=== PATIENT | male | born 1950 | race African-American/Black ===

== ENCOUNTER 2025-07-05 06:34 | Outpatient (REF) | payer MEDICARE, SELFPAY ==
[2025-07-05 06:01] LABS: MANUAL DIFF FLAG NO
--- OUTSIDE RECORDS SUMMARY | 2025-07-05 06:49 | XMS_ITS | Encounter Summary ---
Author Organization [facility] [place], Address [address] [place] [address] Phone Care Team Providers Care Nurse Orthopaedic Name Role Phone Juan Acosta MD Primary Care Provider [phone] Encounter Details Date Type Department Care Team (Late st Contact Info) Description 11/18/2023 Documentation Only [facility] [address] [place] [phone] [place] [address] [place] [phone] Social History Tobacco Use Types Packs/Day Years Used Date Smoking Tobacco: Former Cigarettes 0 Q uit: 08/11/1999 Smokeless Tobacco: Former Quit: 08/12/1998 Alcohol Use Standard Drinks/Week Comments Yes 0 (1 standard drink = 0.6 oz pure alcohol) Alcoholic Drinks/day: Occasional social drink Sex and Gender Information Value Date Recorded Sex Assigned at Not on file Legal Sex Male 4:37 PM EST Gender Identity Not on file Sexual Orientation Not on file documented as of this encounter Plan of Treatment Upcoming Encounters Date Type Department Care Team (Late st Contact Info) Description 08/25/2025 1:30 PM EST Office Visit [facility] [address] [place] [address] documented as of this encounter Visit Diagnoses Not on filedocumented in this encounter Care Teams Nurse Orthopaedic Relationship Specialty Start Date End Date Juan Acosta MD [address] [place] [address] [place] [address] PCP - General Internal Medicine 05/19/20 documented as of this encounter
--- OUTSIDE RECORDS SUMMARY | 2025-07-05 06:49 | XMS_ITS | Encounter Summary ---
Author Organization [facility] [place], Address [address] [place] [address] Phone Care Team Providers Care Bread Dough Mixer Name Role Phone Juan Acosta MD Primary Care Provider [phone] Encounter Details Date Type Department Care Team (Late st Contact Info) Description 06/11/2025 Orders Only [facility] [address] [place] [phone] Daisy Kaba [address] [place] [phone] Chronic kidney disease, Stage V (HCC) Social History Tobacco Use Types Packs/Day Years Used Date Smoking Tobacco: Former Cigarettes 0 Q uit: 08/11/1999 Smokeless Tobacco: Never Alcohol Use Standard Drinks/Week Comments Yes 0 [...] Visit [facility] [address] [place] [address] documented as of this encounter Visit Diagnoses Diagnosis Chronic kidney disease, Stage V (HCC) Chronic kidney disease, Stage V documented in this encounter Care Teams Bread Dough Mixer Relationship Specialty Start Date End Date Juan Acosta MD [address] [place] [address] PCP - General Internal Medicine 05/19/20 documented as of this encounter
--- OUTSIDE RECORDS SUMMARY | 2025-07-05 06:49 | XMS_ITS | Encounter Summary ---
Author Organization [facility] [place], Address [address] [place] [address] Phone Care Team Providers Care Continuity Coordinator Name Role Phone Juan Acosta MD Primary Care Provider [phone] Encounter Details Date Type Department Care Team (Late st Contact Info) Description 12/23/2024 Documentation Only [facility] [address] [place] [phone] Summer Perez [address] [place] [phone] Social History Tobacco Use Types Packs/Day Years [...] Visit [facility] [address] [place] [address] documented as of this encounter Visit Diagnoses Not on filedocumented in this encounter Care Teams Continuity Coordinator Relationship Specialty Start Date End Date Juan Acosta MD [address] [place] [address] [place] [address] PCP - General Internal Medicine 05/19/20 documented as of this encounter
--- OUTSIDE RECORDS SUMMARY | 2025-07-05 06:49 | XMS_ITS | Encounter Summary ---
Author Organization [facility] [place], Address [address] [place] [address] Phone Care Team Providers Care Engineer Geophysical Laboratory Name Role Phone Juan Acosta MD Primary Care Provider [phone] Encounter Details Date Type Department Care Team (Late st Contact Info) Description 01/01/2025 Documentation Only [facility] [address] [place] [phone] [place] [address] [place] [phone] Social History Tobacco Use Types Packs/Day Years [...] Visit [facility] [address] [place] [address] documented as of this encounter Visit Diagnoses Not on filedocumented in this encounter Care Teams Engineer Geophysical Laboratory Relationship Specialty Start Date End Date Juan Acosta MD [address] [place] [address] [place] [phone] PCP - General Internal Medicine 05/19/20 documented as of this encounter
--- OUTSIDE RECORDS SUMMARY | 2025-07-05 06:49 | XMS_ITS | Encounter Summary ---
Author Organization [facility] [place], Address [address] [place] [address] Phone Care Team Providers Care Rim Buster Name Role Phone Juan Acosta MD Primary Care Provider [phone] Encounter Details Date Type Department Care Team (Late st Contact Info) Description 02/10/2020 Orders Only [facility] [place] [address] [place] [phone] Lan Gamboa MD [address] [place] [address] [place] [phone] Chronic kidney disease stage 3 (HCC) Social History Tobacco Use Types Packs/Day Years Used Date Smoking Tobacco: Former Cigarettes 0 Q uit: 08/11/1999 Alcohol Use Standard Drinks/Week Comments Yes 0 [...] Visit [facility] [place] [address] [place] [address] [place] [phone] documented as of this encounter Visit Diagnoses Diagnosis Chronic kidney disease stage 3 (HCC) documented in this encounter Care Teams Rim Buster Relationship Specialty Start Date End Date Juan Acosta MD [address] [place] [phone] PCP - General Internal Medicine 05/19/20 documented as of this encounter
--- OUTSIDE RECORDS SUMMARY | 2025-07-05 06:49 | XMS_ITS | Encounter Summary ---
Author Organization [facility] [place], Address [address] [place] [address] Phone Care Team Providers Care Operations Scheduler Name Role Phone Juan Acosta MD Primary Care Provider [phone] Encounter Details Date Type Department Care Team (Late st Contact Info) Description 12/30/2024 Documentation Only [facility] [address] [place] [phone] Summer Perez [address] [place] [phone] Social History Tobacco Use Types Packs/Day Years [...] Visit [facility] [address] [place] [address] documented as of this encounter Visit Diagnoses Not on filedocumented in this encounter Care Teams Operations Scheduler Relationship Specialty Start Date End Date Juan Acosta MD [address] [place] [address] [place] [phone] PCP - General Internal Medicine 05/19/20 documented as of this encounter
--- OUTSIDE RECORDS SUMMARY | 2025-07-05 06:49 | XMS_ITS | Encounter Summary ---
Author Organization [facility] [place], Address [address] [place] [address] Phone Care Team Providers Care Airframe Technical Officer Name Role Phone Juan Acosta MD Primary Care Provider [phone] Encounter Details Date Type Department Care Team (Late st Contact Info) Description 06/29/2025 Treatment [facility], [address] [place] [phone] Angi Gudino MD [address] [place] [address] End stage renal disease; Dependence on renal dialysis; Type 2 diabetes mellitus with diabetic nephropathy Social History Tobacco Use Types Packs/Day Years [...] on file documented as of this encounter Miscellaneous Notes * Dialysis Note - Angi Gudino MD - 06/29/2025 12:00 AM EST BASIC NOTE Patient: Daniel Cardenas : 1950 Note Author: ANGI GUDINO MD Service Date: 06/29/2025 This patient was personally seen [id number] for a basic visit as part of routine monthly dialysis care for end stage renal disease. Primary cause of renal failure: E11.21 - Type 2 diabetes mellitus with diabetic nephropathy Attending Employment Security Officer: ANGI GUDINO MD Dialysis Location: [facility] Schedule: Shift: 2 OVERVIEW Patient is stable. 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 2.Access: Dialysis access function is acceptable. 3.Hypertension: Blood pressure control and volume status are at goal. 4.Anemia: Labs reviewed and adjustments to regimen made according to anemia management protocol. 5.Mineral Bone Disease: Labs reviewed. Diet and medication adjustment as per protocol. 6.Nutrition: Labs reviewed. Dietary adjustments made in conjunction with aromatherapist. 7.Transplant: The patient is being evaluated for a kidney transplant was turned down due to fraily. 05/18/25 Patient is stable Medications reviewed Physical Exam Vital signs: reviewed Edema: none Impression 1.Adequacy: KT/V was assessed and the dialysis prescription was adjusted as needed. 2.Access: Dialysis access function is acceptable. 3.Hypertension: Blood pressure control and volume status are at goal. 4.Anemia: Labs reviewed and adjustments to regimen made according to anemia management protocol. 5.Mineral Bone Disease: Labs reviewed. Diet and medication adjustment as per protocol. 6.Nutrition: Labs reviewed. Dietary adjustments made in conjunction with aromatherapist. 7.Transplant: The patient is being evaluated for a kidney transplant. 04/20/25 Patient is stable Medications reviewed Physical Exam Vital signs: reviewed Edema: none Impression 1.Adequacy: KT/V was assessed and the dialysis prescription was adjusted as needed. 2.Access: Dialysis access function is acceptable. 3.Hypertension: Blood pressure control and volume status are at goal. 4.Anemia: Labs reviewed and adjustments to regimen made according to anemia management protocol. 5.Mineral Bone Disease: Labs reviewed. Diet and medication adjustment as per protocol. 6.Nutrition: Labs reviewed. Dietary adjustments made in conjunction with aromatherapist. 7.Transplant: The patient is being evaluated for a kidney transplant. 03/30/25 Patient is stable Medications reviewed Physical Exam Vital signs: reviewed Edema: none Impression 1.Adequacy: KT/V was assessed and the dialysis prescription was adjusted as needed. 2.Access: Dialysis access function is acceptable. 3.Hypertension: Blood pressure control and volume status are at goal. 4.Anemia: Labs reviewed and adjustments to regimen made according to anemia management protocol. 5.Mineral Bone Disease: Labs reviewed. Diet and medication adjustment as per protocol. 6.Nutrition: Labs reviewed. Dietary adjustments made in conjunction with aromatherapist. 7.Transplant: referral sent 02/18/25 Patient is stable Medications reviewed Physical Exam Vital signs: reviewed Edema: none Impression 1.Adequacy: KT/V was assessed and the dialysis prescription was adjusted as needed. 2.Access: Dialysis access function is acceptable. 3.Hypertension: Blood pressure control and volume status are at goal. 4.Anemia: Labs reviewed and adjustments to regimen made according to anemia management protocol. 5.Mineral Bone Disease: Labs reviewed. Diet and medication adjustment as per protocol. 6.Nutrition: Labs reviewed. Dietary adjustments made in conjunction with aromatherapist. 7.Transplant: referral sent 01/12/25 Patient is stable MAT no signs of renal recovery 1 month on IHD, patient reports no UOP. Currently at rehab [facility] post sepsis ATN. Medications reviewed Physical Exam Vital signs: reviewed Edema: none Impression 1.Adequacy: KT/V was assessed and the dialysis prescription was adjusted as needed. 2.Access: Dialysis access function is acceptable. 3.Hypertension: Blood pressure control and volume status are at goal. 4.Anemia: Labs reviewed and adjustments to regimen made according to anemia management protocol. 5.Mineral Bone Disease: Labs reviewed. Diet and medication adjustment as per protocol. 6.Nutrition: Labs reviewed. Dietary adjustments made in conjunction with aromatherapist. 7.Transplant: The patient is being evaluated for a kidney transplant. Signed by: ANGI GUDINO MD on 06/30/2025 at 12:58:06 PM Transcribed by: ANGI GUDINO MD on 06/30/2025 at 12:58:06 PM documented in this encounter Plan of Treatment Upcoming Encounters Date Type Department Care Team (Late st Contact Info) Description 08/25/2025 1:30 PM EST Office Visit [facility] [place] [address] [place] [address] documented as of this encounter Visit Diagnoses Diagnosis End stage renal disease Dependence on renal dialysis Type 2 diabetes mellitus with diabetic nephropathy documented in this encounter Care Teams Airframe Technical Officer Relationship Specialty Start Date End Date Juan Acosta MD [address] [place] [phone] PCP - General Internal Medicine 05/19/20 documented as of this encounter
--- OUTSIDE RECORDS SUMMARY | 2025-07-05 06:49 | XMS_ITS | Encounter Summary ---
Author Organization [facility] Address [address] [place] [address] Phone Care Team Providers Care Adjutant General Name Role Phone Juan Acosta MD Primary Care Provider Encounter Details Date Type Department Care Team (Late st Contact Info) Description 11/21/2023 Documentation Only [facility] [address] [place] [phone] Mckenzie Morley Social History Tobacco Use Types Packs/Day Years [...] Visit [facility] [address] [place] [phone] documented as of this encounter Visit Diagnoses Not on filedocumented in this encounter Care Teams Adjutant General Relationship Specialty Start Date End Date Juan Acosta MD [address] [place] [address] PCP - General Internal Medicine 05/19/20 documented as of this encounter
--- OUTSIDE RECORDS SUMMARY | 2025-07-05 06:49 | XMS_ITS | Encounter Summary ---
Author Organization [facility] [place], Address [address] [place] [address] Phone Care Team Providers Care Senior Fire Protection Engineer Name Role Phone Juan Acosta MD Primary Care Provider [phone] Encounter Details Date Type Department Care Team (Late st Contact Info) Description 03/19/2025 Orders Only [facility] [address] [place] [phone] Daisy Kaba [address] [place] [phone] Chronic kidney disease, Stage V (HCC) Social [...] Visit [facility] [place] [address] [place] [address] documented as of this encounter Visit Diagnoses Diagnosis Chronic kidney disease, Stage V (HCC) Chronic kidney disease, Stage V documented in this encounter Care Teams Senior Fire Protection Engineer Relationship Specialty Start Date End Date Juan Acosta MD [address] [place] [phone] PCP - General Internal Medicine 05/19/20 documented as of this encounter
--- OUTSIDE RECORDS SUMMARY | 2025-07-05 06:49 | XMS_ITS | Encounter Summary ---
Author Organization [facility] [place], Address [address] [place] [address] Phone Care Team Providers Care Bellman Captain Name Role Phone Juan Acosta MD Primary Care Provider [phone] Encounter Details Date Type Department Care Team (Late st Contact Info) Description 12/23/2024 Documentation Only [facility] [address] [place] [phone] [place] [address] [place] [phone] Social History Tobacco Use Types Packs/Day Years [...] Visit [facility] [address] [place] [address] documented as of this encounter Visit Diagnoses Not on filedocumented in this encounter Care Teams Bellman Captain Relationship Specialty Start Date End Date Juan Acosta MD [address] [place] [address] [place] [address] PCP - General Internal Medicine 05/19/20 documented as of this encounter
--- OUTSIDE RECORDS SUMMARY | 2025-07-05 06:49 | XMS_ITS | Encounter Summary ---
Author Organization [facility] Address [address] [place] [address] Phone Care Team Providers Care Manager Mac Name Role Phone Juan Acosta MD Primary Care Provider [phone] Encounter Details Date Type Department Care Team (Late st Contact Info) Description 12/21/2024 Documentation Only [facility] [address] [place] [phone] [place] [address] [place] [phone] Social History Tobacco Use Types Packs/Day Years [...] Visit [facility] [address] [place] [address] documented as of this encounter Visit Diagnoses Not on filedocumented in this encounter Care Teams Manager Mac Relationship Specialty Start Date End Date Juan Acosta MD [address] [place] [phone] PCP - General Internal Medicine 05/19/20 documented as of this encounter
--- OUTSIDE RECORDS SUMMARY | 2025-07-05 06:50 | XMS_ITS | Encounter Summary ---
Author Organization [facility] Address [address] [place] [address] Care Team Providers Care Cmo Name Role Phone Juan Acosta MD Primary Care Provider [phone] Encounter Details Date Type Department Care Team (Late st Contact Info) Description 12/21/2024 Lab Requisition [facility] - Main Lab [address] [place] [phone] Jamel Ulloa MD [address] [place] [id number] Encounter for other general examination Social History Tobacco Use Types Packs/Day Years Used Date Smoking Tobacco: Former Cigarettes 0.5 31 0 08/12/1968 - 08/11/1999 Smokeless Tobacco: Never Alcohol Use Standard Drinks/Week Comments Yes 0 (1 standard drink = 0.6 oz pur e alcohol) Housing Instability Answer Date Recorde d Are you worried that in the next 2 months you may not have stable housing? No 07/30/2024 Food Access & Nutrition Answer Date Rec orded Do you have access to a vari ety of food including fruits and vegetables? No 07/30/2024 Access to Healthcare Answer Date Record ed Within the last 3 months, micah garzon many times did you visit the emergency department for your medical care? 0 07/30/2024 Health Literacy Answer Date Recorded How often do you need to hav e someone help you when you read instructions, pamphlets, or other written material from your doctor or pharmacy? Never 07/30/2024 Caregiver: How often do you need to have someone help you when you read instructions, pamphlets, or other written material from your doctor or pharmacy? Not on file 07/30/2024 Financial Risk Answer Date Recorded How hard is it for you to pa y for the very basics like food, housing, medical care, and air conditioning / heating? Very hard 07/30/2024 Transportation Answer Date Recorded Has the lack of transportati on kept you from meetings, work, or from getting things needed for daily living? Yes Has the lack of transportati on kept you from medical appointments or from getting medications? Yes 07/30/2024 Social Isolation Answer Date Recorded How often do you feel lonely or isolated from those around you? Sometimes 07/30/2024 Food Risk Answer Date Recorded Within the past 12 months we worried whether our food would run out before we got money to buy more. Never true 12/07/2024 Within the past 12 months th e food we bought just didn't last and we didn't have money to get more. Never true 12/07/2024 Dependent Care Answer Date Recorded Do you need help finding or paying for care for your loved ones. For example, child care team lead or elderly care for an older adult? Yes 07/30/2024 Education Answer Date Recorded Do you think completing more education or training, like finishing a GED, going to college, or learning a trade, would be helpful for you? No 07/30/2024 Employment and Income Answer Date Recor ded During the last four weeks, have you been actively looking for work? No 07/30/2024 Living Situation Answer Date Recorded What is your living situation? Unrecognized valu e 07/30/2024 Interpersonal Safety Answer Date Record ed Physical Abuse Unrecognized value 12/16/2024 Verbal Abuse Unrecognized value 12/16/2024 Sex and Gender Information Value Date Recorded Sex Assigned at Male 11/30/2024 10:37 AM EDT Legal Sex Male 6:36 PM EST Gender Identity Male 11/30/2024 10:37 AM EDT Sexual Orientation Not on file documented as of this encounter Plan of Treatment Upcoming Encounters Date Type Department Care Team (Late st Contact Info) Description 07/19/2025 11:00 AM EST Office Visit Adult [address] [phone] Juan Acosta MD [address] [place] [address] 08/02/2025 9:10 AM EST Office Visit [facility] [address] [facility] [address] [place] [phone] Katiana Keen NP [address] [place] [address] [place] [address] 12/06/2025 11:00 AM EDT Office Visit [address] [phone] Juan Acosta MD [address] [place] [address] documented as of this encounter Procedures Procedure Name Priority Date/Time Associated Diagnosis Comments CBC WITH AUTO DIFFERENTIAL Routine 12/21/2024 5:08 AM EDT Encounter for other general examination CBC AND DIFFERENTIAL Routine 12/21/2024 5:08 AM EDT Encounter for other general examination PHOSPHORUS Routine 12/21/2024 5:08 AM EDT Encounter for other general examination HEMOGLOBIN A1C Routine 12/21/2024 5:08 AM EDT Encounter for other general examination BASIC METABOLIC PANEL Routine 12/21/2024 5:08 AM EDT Encounter for other general examination documented in this encounter Results * (ABNORMAL) CBC auto differential (12/21/2024 5:08 AM EDT) [facility] WBC 5.2 4.8 - 10.8 K/mcL LAB HEMETOLOGY METHOD 12/21/2024 12:51 PM [facility] RBC 2.50(L) 4.50 - 5.50 M/mcL LAB HEMETOLOGY METHOD 12/21/2024 12:51 PM [facility] Hemoglobin 7.6(L) 13.5 - 17.5 g/dL LAB HEMETOLOGY METHOD 12/21/2024 12:51 PM [facility] Hematocrit 25.0(L) 42.0 - 54.0 % LAB HEMETOLOGY METHOD 12/21/2024 12:51 PM [facility] MCV 102.0(H) 79.0 - 98.0 FL LAB HEMETOLOGY METHOD 12/21/2024 12:51 PM [facility] MCH 31.0 27.0 - 32.0 pcg LAB HEMETOLOGY METHOD 12/21/2024 12:51 PM [facility] MCHC 30.4(L) 32.0 - 37.0 g/dL LAB HEMETOLOGY METHOD 12/21/2024 12:51 PM [facility] RDW 14.4 11.0 - 15.0 % LAB HEMETOLOGY METHOD 12/21/2024 12:51 PM [facility] Platelets 247 130 - 400 K/mcL LAB HEMETOLOGY METHOD 12/21/2024 12:51 PM [facility] MPV 10.7 7.0 - 11.0 FL LAB HEMETOLOGY METHOD 12/21/2024 12:51 PM [facility] NRBC 0.0 <1.0 % LAB HEMETOLOGY METHOD 12/21/2024 12:51 PM [facility] NRBC Absolute 0.00 <0.10 K/mcL LAB HEMETOLOGY METHOD 12/21/2024 12:51 PM [facility] Neutrophils Relative 49.2 % LAB HEMETOLOGY METHOD 12/21/2024 12:51 PM [facility] Lymphocytes Relative 30.3 % LAB HEMETOLOGY METHOD 12/21/2024 12:51 PM [facility] Monocytes Relative 14.5 % LAB HEMETOLOGY METHOD 12/21/2024 12:51 PM [facility] Eosinophils Relative 4.2 % LAB HEMETOLOGY METHOD 12/21/2024 12:51 PM [facility] Basophils Relative 1.2 % LAB HEMETOLOGY METHOD 12/21/2024 12:51 PM [facility] Immature Granulocytes Relative 0.6 % LAB HEMETOLOGY METHOD 12/21/2024 12:51 PM [facility] Neutrophils Absolute 2.55 1.50 - 7.00 K/mcL LAB HEMETOLOGY METHOD 12/21/2024 12:51 PM [facility] Lymphocytes Absolute 1.57 1.00 - 5.00 K/mcL LAB HEMETOLOGY METHOD 12/21/2024 12:51 PM [facility] Monocytes Absolute 0.75 0.20 - 1.00 K/mcL LAB HEMETOLOGY METHOD 12/21/2024 12:51 PM [facility] Eosinophils Absolute 0.22 0.00 - 0.50 K/mcL LAB HEMETOLOGY METHOD 12/21/2024 12:51 PM [facility] Basophils Absolute 0.06 0.00 - 0.20 K/mcL LAB HEMETOLOGY METHOD 12/21/2024 12:51 PM [facility] Immature Granulocytes Absolute 0.03 0.00 - 0.03 K/mcL LAB HEMETOLOGY METHOD 12/21/2024 12:51 PM [facility] Blood Venous blood specimen / Unknown Venipuncture / Unknown 12/21/2024 5:08 AM EDT 12/21/2024 10:32 AM EDT us Jamel Ulloa MD LAB BLOOD ORDERABLES Final Resu lt Performing Organization Address City/[facility]/ZIP Co de Phone Number [facility] [address] [place] [address], [place] [phone] * Phosphorus (12/21/2024 5:08 AM EDT) Phosphorus 3.2 2.5 - 4.5 mg/dL LAB CHEMISTRY METHOD 12/21/2024 1:32 PM EDT [facility] Blood Venous blood specimen / Unknown Venipuncture / Unknown 12/21/2024 5:08 AM EDT 12/21/2024 10:32 AM EDT us Jamel Ulloa MD LAB BLOOD ORDERABLES Final Resu lt Performing Organization Address [facility]/ZIP Co de Phone Number [facility] [address] [place] [address], [place] [phone] * Hemoglobin A1c (12/21/2024 5:08 AM EDT) Hemoglobin A1C 5.9 <6.5 % LAB CHEMISTRY METHOD 12/21/2024 10:14 PM EDT [facility] Mean Bld Glu Estim. 123 mg/dL LAB CHEMISTRY METHOD 12/21/2024 10:14 PM EDT [facility] Blood Venous blood specimen / Unknown Venipuncture / Unknown 12/21/2024 5:08 AM EDT 12/21/2024 10:32 AM EDT us Jamel Ulloa MD LAB BLOOD ORDERABLES Final Resu lt Performing Organization Address City/[facility]/ZIP Co de Phone Number [facility] [address] [place] [address], [place] [phone] * (ABNORMAL) Basic metabolic panel (12/21/2024 5:08 AM EDT) Sodium 130(L) 133 - 145 mmol/L LAB CHEMISTRY METHOD 12/21/2024 1:52 PM [facility] Potassium 5.3 3.5 - 5.5 mmol/L LAB CHEMISTRY METHOD 12/21/2024 1:52 PM [facility] Chloride 92(L) 96 - 110 mmol/L LAB CHEMISTRY METHOD 12/21/2024 1:52 PM [facility] CO2 27 21 - 32 mmol/L LAB CHEMISTRY METHOD 12/21/2024 1:52 PM [facility] Anion Gap 11 3 - 11 LAB CHEMISTRY METHOD 12/21/2024 1:52 PM [facility] Glucose 64(L) 70 - 100 mg/dL LAB CHEMISTRY METHOD 12/21/2024 1:52 PM [facility] BUN 57(H) 5 - 25 mg/dL LAB CHEMISTRY METHOD 12/21/2024 1:52 PM [facility] Creatinine 5.50(H) 0.70 - 1.30 mg/dL LAB CHEMISTRY METHOD 12/21/2024 1:52 PM [facility] eGFR 10(L) >=60 mL/min/1. 73m2 LAB CHEMISTRY METHOD 12/21/2024 1:52 PM [facility] Comment:Calculation based on the Chronic Kidney Disease Epidemiology Collaboration (CKD-EPI) equation refit without adjustment for race. BUN/Creatinine Ratio 10.4 LAB CHEMISTRY METHOD 12/21/2024 1:52 PM [facility] Calcium 8.8 8.5 - 10.5 mg/dL LAB CHEMISTRY METHOD 12/21/2024 1:52 PM [facility] Blood Venous blood specimen / Unknown Venipuncture / Unknown 12/21/2024 5:08 AM EDT 12/21/2024 10:32 AM EDT us Jamel Ulloa MD LAB BLOOD ORDERABLES Final Resu lt [facility] [address] [place] [address], documented in this encounter Visit Diagnoses Diagnosis Encounter for other general examination documented in this encounter Additional Health Concerns Infection Onset Date Last Indicated Resolved Time COVID-19 11/30/2024 11/30/2024 12/30/2024 7:06 PM EDT Assessment Noted Time PHQ-9 Depression Total Score: 6 07/13/20 24 4:59 PM EST A fall risk assessment has been complete d for the patient 07/12/2024 10:54 AM EST documented as of this encounter Care Teams Cmo Relationship Specialty Start Date End Date Juan Acosta MD [address] [place] [phone] PCP - General Internal Medicine 03/25/20 documented as of this encounter
--- OUTSIDE RECORDS SUMMARY | 2025-07-05 06:50 | XMS_ITS | Clinical Summary ---
Author Organization [facility] Address [address] [place] [address] Care Team Providers Care Photogrammetry Airplane Pilot Name Role Phone Juan Acosta MD Primary Care Provider Allergies Active Allergy Reactions Criticality Noted Date Comments Egg Derived 01/14/2025 Egg Yolk Nausea And Vomiting 10/26/2014 Medications cetirizine (ZyrTEC) 10 mg tablet Take 10 mg by mouth daily. 014 Active docusate sodium (COLACE) 100 mg capsule Take 100 mg by mouth 2 times daily. Active MULTIVITAMIN ORAL daily Active calcium carbonate (CALCIUM 500 ORAL) daily Active medical supply, miscellaneous (MISCELLANEOUS MEDICAL SUPPLY MISC) HISTORICAL CPAP Inhale into the lungs. [employer]-pressure 10 Active allopurinoL (ZYLOPRIM) 100 mg tabletIndication s:Gout, unspecified,Hype rlipidemia, unspecified TAKE 1 TABLET BY MOUTH EVERY DAY 90 tablet 1 025 Active Nephro Vitamins 0.8 mg tablet TAKE 1 TABLET BY MOUTH EVERY DAY 90 tablet 1 025 Active senna 8.6 mg tablet TAKE 1 TABLET BY MOUTH TWICE A DAY 180 tablet 1 025 Active Eliquis 5 mg tablet TAKE 1 TABLET BY MOUTH TWICE A DAY 180 tablet 1 Active ammonium lactate (AMLACTIN) 12 % cream APPLY TO AFFECTED AREA TWICE A DAY 140 g 1 Active atorvastatin (LIPITOR) 20 mg tablet Take 1 tablet (20 mg total) by mouth 1 (one) time each day. 90 tablet 1 Active metoprolol tartrate (LOPRESSOR) 25 mg tablet Take 1 tablet (25 mg total) by mouth 2 (two) times a day. 025 2024 Active midodrine (PROAMATINE) 10 mg tablet Take 1 tablet (10 mg total) by mouth 3 (three) times a day if needed (systolic <100 or diastolic <40). 025 2024 Active clopidogreL (PLAVIX) 75 mg tablet Take 1 tablet (75 mg total) by mouth 1 (one) time each day. 2024 Active pantoprazole (PROTONIX) 40 mg EC tablet Take 1 tablet (40 mg total) by mouth 1 (one) time each day before breakfast. Do not crush, chew, or split. 2024 Discontinued melatonin 3 mg tablet Take 1 tablet (3 mg total) by mouth at bedtime as needed (Sleep). 2024 Discontinued FLUoxetine (PROzac) 20 mg capsule Take 1 capsule (20 mg total) by mouth 1 (one) time each day. 2024 Discontinued albuterol 2.5 mg /3 mL (0.083 %) nebulizer solutionIndicati ons:MSSA bacteremia Take 3 mL (2.5 mg total) by nebulization every 4 (four) hours if needed for wheezing. 2024 Discontinued metoprolol tartrate (LOPRESSOR) 25 mg tablet TAKE 1/2 TABLET BY MOUTH TWICE A DAY 90 tablet 1 025 2024 Discontinued(S top Taking at Discharge) midodrine (PROAMATINE) 5 mg tablet Take 1 tablet (5 mg total) by mouth 2 (two) times daily before breakfast and lunch. 180 tablet 1 2024 Discontinued(S top Taking at Discharge) atorvastatin (LIPITOR) 20 mg tablet TAKE 1 TABLET BY MOUTH EVERY DAY 90 tablet 1 025 2024 Discontinued(S top Taking at Discharge) diclofenac (VOLTAREN) 1 % topical gel Apply 4 g topically 2 (two) times a day. 60 g 1 025 2024 Discontinued(S top Taking at Discharge) acetaminophen (TYLENOL) 500 mg tablet Take 2 tablets (1,000 mg total) by mouth every 8 (eight) hours for 10 days. 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, bilateral ([facility] V2 4) 06/14/2025 Malnutrition of moderate degree ([facility] V24) Pneumonia 12/10/2024 MSSA bacteremia 12/10/2024 Acute kidney injury superimposed on CKD ([facility] V24) 12/10/2024 Volume overload 12/10/2024 Hiccups 12/10/2024 Acute hypoxemic respiratory failure ([facility] V24, [facility] V28) 11/30/2024 Hyperkalemia 11/30/2024 Type 2 diabetes mellitus wit h cataract ([facility] V24, [facility] V28) 05/12/2024 Type 2 diabetes mellitus, co ntrolled, with renal complications ([facility] V24, [facility] V28) 05/12/2024 Known medical problems 05/12/2024 Overview (05/12/2024): DM (diabetes mellitus) type II uncontrolled with eye manifestation Malnutrition compromising bodily function ([facility] V24) 05/12/2024 Overview (05/12/2024): Internal hemorrhoids with other complication Cervical myelopathy ([facility] V24, [facility] V28) 0 02/26/2024 Overview (05/12/2024): Last Assessment & Plan: Patient has h/o severe distal arm and hand numbness after a fall down steps on his porch 05/08/22. Right after he fell, he had numbness in his forearms then then started to spread to his hands. He had some improvement in the forearm numbness over time, but his fingers/ fingertips are still very numb and he has a hard time using his hands, gripping things, holding onto the walker. He has a hard time tying his shoes, writing, buttoning. He has senior services coming 2x/ week to do housekeeping. His grandaughter moved in to help him out, but he is able to dress himself. If he has to he could vacuum and fold laundry. He has had difficutly lifting his legs, his balance has been off and he needs a walker since the fall. He also has lumbar stenosis, multilevel lumbar degenerative findings, with chronic back pain x 20 yrs, worse recently. He has multiple medical issues, especially vascular disease, LE swelling and wounds that weep fluid, he goes to the wound clinic, has gauze bandages on the lower legs/ankles. He was referred by Dr. Paniagua, neurology. He says his diabetes is under good control, last A1C 5.5. No previous AR, cancer hx. His C/S MRI 11/09/23 [facility] shows severe C4-5 stenosis with cord compression and signal change in the spinal cord, including compression posteriorly with thickening of the ligament. His L/S MRI shows multilevel DDD, stenosis including L4-5 stenosis. I reviewed MRI with pt on the computer. Dr. Hoffman reviewed the C/S MRI while pt was in the office. Mr. Farmer has severe C4-5 stenosis, cord compression and cervical myelopathy since a fall almost [address] Hoffman offered pt C4-5 posterior decompression. We talked in detail about the surgery, recovery, risks and benefits, including but not limited to need for GETA, risk of AR or stroke, infection, hematoma, risk of damage to spinal cord or nerves, dural tear / CSF leak. I explained the goal of surgery would be to prevent him for getting worse over time, and if he might accidentally have another fall, sxs could get worse. He may not see improvement in his current sxs. Hibiclens body wash and instructions given to pt. All questions answered. He will need medical and vascular clearance (Dr. Bird). We will call for wound clinic notes. We can address his low back pain and lumbar stenosis once we are able to fix the cervical stenosis which is the priority, if medically cleared for surgery and able to come off his coumadin 5 days pre and postop. Assessment & Plan (06/19/2024 11:51 AM EST): Mr. Farmer describes significant improvement in his hands. He says he can finally feel his fingertips. He is very pleased with his postoperative results and I would agree with him. His wound is now well-healed and he is off of Keflex. No fevers. No night sweats. He will follow-up on an as-needed basis. Chronic diastolic congestive heart failure ([facility] V24, [facility] V28) 11/15/2021 Overview (05/12/2024): Last Assessment & Plan: The patient has ongoing mild lower extremity edema which is typically managed with compression stockings. He does however, report significant sodium load in his 24-hour dietary recall which is likely adding to his lower extremity edema. We then are adjusting his diuretic therapy around his sodium indiscretion and likely causing a degree of intravascular volume depletion which is leading him to be dizzy. Part of his dyspnea is also sounds to be potential vertigo/BPPV given the dizziness occurring with moving his head. If his dizziness does not improve with reduction of his Lasix as well as better salt intake, he has a visit planned with his PCP team and he can be evaluated for vertigo/BPPV at that time by his team. Continue otherwise for now his JOVANNY inhibitor, beta-hina, and MRA. He also takes nifedipine for blood pressure control which is integral in managing his HFpEF, but is likely adding in part to his lower extremity edema. The lower extremity edema that accompanies calcium channel hina use typically is refractory to diuretic adjustment which also may point to intravascular volume depletion as a source of at least part of his dizziness. The patient will send me a Aireumt message next week to let me know how he is doing. Ascending aorta dilatation ([facility] V24) 021 Abdominal aortic aneurysm (A AA) without rupture ([facility] V24) 07/19/2020 Iliac artery aneurysm, right ([facility] V24) 07/19 Primary central sleep apnea 09/14/2016 Obesity (BMI 30.0-34.9) 07/27/2014 Type 2 diabetes mellitus ([facility]24, [facility] V 28) 2014 DM (diabetes mellitus) with peripheral vascular complication ([facility] V24, [facility] V28) 12/25/2011 Overview (05/12/2024): ED. Assessment & Plan (08/06/2024 12:11 PM EST): Orders: Hemoglobin A1c; Future PVD (peripheral vascular disease) ([facility] V24) 12/25/2011 S/P colostomy ([facility] V24, [facility] V28) 012 Overview (05/12/2024): Placed 2003, Revision of- 2004. CKD (chronic kidney disease) stage 4, GFR 15-29 ml/min ([facility] V24, [facility] V28) 03/16/2011 NS (nuclear sclerosis) 02/02/2011 Spinal stenosis, lumbar anna on, without neurogenic claudication 04/03/2010 Degenerative arthritis of lumbar spine 0 Low back pain 02/16/2010 Radiculitis, lumbosacral 02/16/2010 Microalbuminuria 12/24/2008 Gout 11/03/2007 Obstructive sleep apnea 05/14/2006 Overview (05/12/2024): [facility] [place] [facility] [place]ysomnogram treatment study. Date 11/03/2017. SE 51 % SM 60 %; spent 0 % of the study in REM. At the optimal pressure of 18 CPAP; RDI 2.1 (AHI 0), Central apneas 0; Obstructive apneas 0; Mixed apneas 0; hypopneas 0; RERAs 2; and, average oxygen saturation was 97%. For the entire study, PLMs ~1. Atrial fibrillation ([facility] V24, [facility] V28) 0 09/25/2005 Overview (05/12/2024): Last Assessment & Plan: Patient's heart rate is well controlled on EKG in office today. He remains chronically anticoagulated Coumadin with rate control strategy with Coreg. Continue the same for now. Assessment & Plan (07/28/2024 11:31 AM EST): Orders: ECG 12 lead Transthoracic echocardiogram (TTE) complete with PRN contrast, bubble, strain, and 3D order panel; Future CHF (congestive heart failure) (CMS/HCC V24, CMS /HCC V28) 09/25/2005 Diverticulitis of colon 09/25/2005 Essential hypertension, benign 08/31/2005 Overview (05/12/2024): Last Assessment & Plan: Patient's blood pressure is reasonably controlled in office however, upon standing, his blood pressure dropped to 110. This likely explains at least part of his postural dizziness. We will decrease his Lasix to 40 mg daily, advising fluid and sodium restriction as the alternative component to increase diuretic in managing his HFpEF. This is discussed with patient. I gave him information on sodium reduction. Assessment & Plan (08/06/2024 12:11 PM EST): Orders: Basic metabolic panel; Future Hyperlipidemia 08/31/2005 Overview (05/12/2024): Last Assessment & Plan: Patient's LDL is well controlled given underlying diabetes. Continue statin at current dose. Assessment & Plan (08/06/2024 12:11 PM EST): Orders: Lipid panel with reflex to direct LDL; Future Encounters Date Type Department Care Team Description 06/14/2025 1:29 PM EST Anesthesia Event [facility] [place] [address] [place] [phone] Zeke Reddy MD Steele, Matthew G, CRNA 06/14/2025 1:10 PM EST - 06/14/2025 3:10 PM EST Surgery [facility] [place] [address] [place] [phone] Gerardo Bird MD LEFT POPLITEAL ARTERY ANEURYSM HYBRID REPAIR 06/14/2025 9:00 AM EST - 06/14/2025 11:00 AM EST Surgery [facility] [employer] Installation Engineer [address] [place] [phone] Gerardo Bird MD Angiography lower ext left 06/14/2025 1:52 AM EST - 06/21/2025 12:06 PM [facility] Hospital Encounter [facility] [address] [place] [phone] Ama Stephenson MD Sondhi, Vikram, MD Zipagan, James T, MD Kokosadze, Estate, MD Ascending aorta dilatation ([facility] V24) (Primary Dx); Atrial fibrillation ([facility] V24, CMS/HCC V28); Popliteal artery aneurysm, bilateral ([facility] V24); Peripheral arterial disease ([facility] V24); Infrarenal abdominal aortic aneurysm (AAA) without rupture ([facility] V24); Aneurysm artery, popliteal ([facility] V24); Ruptured aneurysm of popliteal artery ([facility] V24); Dissection of aorta ([facility] V24, [facility] V28) Discharge Disposition: Detention Facility 06/01/2025 Telephone Adult Medicine [address] [phone] Juan Acosta MD 05/31/2025 10:00 AM EDT Office Visit Adult [address] [phone] Juan Acosta MD Type 2 diabetes mellitus, controlled, with renal complications ([facility] V24, [facility] V28) (Primary Dx); Pure hypercholesterolemi a; Encounter for long-term (current) use of medications; Hand paresthesia; Bilateral carpal tunnel syndrome; Atrial fibrillation, unspecified type ([facility]/HCC V24, CMS/HCC V28); ESRD (end stage renal disease) on dialysis ([facility] V24, [facility] V28); Essential hypertension, benign 04/13/2025 Anticoagulation - Warfarin Visit [facility] [address] [phone] Norma Dietz LPN Atrial fibrillation, unspecified type ([facility] V24, [facility] V28) (Primary Dx) from Last 3 Months Immunizations Immunization Administration Dates Next Due H1N1 Inj Preservative Free 09/05/2009 Hepatitis B (Egncwxr-A-Gghmj , Recombivax HB-Adult) 19yo and older 03/20/2025,02/13/2025,01/16/2025 Influenza Quadravalent, MDCK , 0.5ml, preservative free (Flucelvax) 6mo and older 06/19/2018 Influenza Quadravalent, MDCK , 0.5ml, with preservative (Flucelvax) 6mo and older 06/06/2017 Influenza trivalent, 0.5mL ( Fluzone High-dose) 65yo and older 05/28/2022,06/22/2021,05/20/2020,07/01 Influenza trivalent, with pr eservative (Fluzone; Afluria) 6mo and older 05/04/2025,04/27/2016,06/03/2015,05/27,05/05/2013,05/02/2012,05/12/2011 ,05/26/2010,09/05/2009,05/11/2008 Influenza, Unspecified 07/01/2019 Moderna (age 6mo & older) Bi valent, COVID-19, 0.5 mL or 0.25 mL dosage 05/28/2022 Dr. Scribbles SARS-CoV-2 COVID-19, mRNA, LNP-S, preservative free 07/12/2021,11/29/2020,11/08/2020 Pneumococcal conjugate 13 va lent (Prevnar 13, PCV13) 2mo and older 06/06/2017 Pneumococcal conjugate 20 va lent (Prevnar 20, PCV 20) 2mo and older 01/14/2025 Pneumococcal polysaccharide 23 valent (Pneumovax 23) 2yo and older 09/09/2014,04/02/2007 RSV, bivalent, protein subun it RSVpreF, 0.5mL, Preservative Free (Arexvy) 50yo and older 05/24/2025 Td Tetanus diptheria (Tdvax) 7yo and older 04/09/2007 Tdap Tetanus diptheria acell ular pertussis (Boostrix; Adacel) 7yo and older 01/31/2017 Zoster Live 02/29/2012 Surgical History Surgery Date Site/Laterality Comments OTHER SURGICAL HISTORY 2003 PROCEDURE: SD COLOSTOMY/SKIN LEVEL CECOSTOMY; COMMENT: DR CLARK; with sigmoid resection for diverticulitis. OTHER SURGICAL HISTORY 2004 PROCEDURE: SD REVJ COLOSTOMY SMPL RLS SUPFC SCAR SPX KNEE ARTHROSCOPY W/ DEBRIDEMENT 2002 PROCEDURE: SD ARTHRS KNEE DEBRIDEMENT/SHAVING ARTCLR CRTLG; COMMENT: DR JUDGE, right KNEE SURGERY 2006 PROCEDURE: HISTORICAL KNEE SURGERY; COMMENT: left, arthroscopy, Dr. Kang CATARACT EXTRACTION Bilateral PROCEDURE: HISTORICAL CATARACT REMOVAL; COMMENT: intraocular lenses 2014 COLONOSCOPY 2005 PROCEDURE: HISTORICAL COLONOSCOPY; COMMENT: Anastomosis, no polyps. COLONOSCOPY 07/31/2016 PROCEDURE: HISTORICAL COLONOSCOPY; COMMENT: Muslu[facility]; no polyps. MULTIPLE TOOTH EXTRACTIONS 1981 PROCEDURE: HISTORICAL DENTAL EXTRACTION OTHER SURGICAL HISTORY 09/17/2023 PROCEDURE: SD SLCTV CATHJ 3RD+ ORD SLCTV ABDL PEL/LXTR BRNCH OTHER SURGICAL HISTORY 09/17/2023 PROCEDURE: SD SLCTV CATHJ EA 2ND+ ORD ABDL PEL/LXTR ART BRNCH OTHER SURGICAL HISTORY 09/17/2023 PROCEDURE: X-RAY EXAM OF ARM/LEG ARTERY OTHER SURGICAL HISTORY 09/17/2023 PROCEDURE: ULTRASOUND GUIDANCE FOR VASCULAR AC NECK SURGERY 05/12/2024 PROCEDURE: HISTORICAL NECK SURGERY; COMMENT: C4-5 posterior decompression, Dr. Hoffman. Medical History Medical History Date Comments Morbid obesity (CMS/HCC V24, CMS/HCC V28) 11/09/2005 DX:Morbid obesity (HCC) Diverticulosis of colon (wit hout mention of hemorrhage) 2003 DX:Diverticulosis of colon ( without mention of hemorrhage) Other and unspecified hyperlipidemia 08/31/2005 DX:Other and unspecified hyperlipidemia Atrial fibrillation (CMS/HCC V24, CMS/HCC V28) 09/25/2005 DX:Atrial fibrillation (HCC) Coronary atherosclerosis of unspecified type of vessel, kalispel or graft 09/25/2005 DX:Coronary atherosclerosis of unspecified type of vessel, kalispel or graft Diverticulitis of colon (wit hout mention of hemorrhage)(562.11) 09/25/2005 DX:Diverticulitis of co cheli (without mention of hemorrhage)(562.11) Internal hemorrhoids with ot her complication 11/09/2005 DX:Internal hemorrhoids with other complication Unspecified sleep apnea 05/14/2006 DX:Unspe cified sleep apnea Type II or unspecified type diabetes mellitus with other specified manifestations, not stated as uncontrolled 08/31/2005 DX:Type II or unspecified ty pe diabetes mellitus with other specified manifestations, not stated as uncontrolled Gout 11/03/2007 DX:Gout Type II or unspecified type diabetes mellitus without mention of complication, not stated as uncontrolled 08/31/2005 DX:Type II or unspecified ty pe diabetes mellitus without mention of complication, not stated as uncontrolled Essential hypertension, benign 08/31/2005 D X:Essential hypertension, benign Low back pain DX:Low back pain Difficulty balancing DX:Difficul ty balancing Loss of sensation DX:Loss of sen sation HTN (hypertension) DX:HTN (hyper tension) PVD (peripheral vascular dis ease) ([facility] V24) 12/25/2011 DX:PVD (peripheral vascular disease) ([facility]) Abdominal aortic aneurysm (A AA) without rupture ([facility] V24) 07/19/2020 DX:Abdominal aortic aneu rysm (AAA) without rupture (HCC) Chronic diastolic congestive heart failure ([facility] V24, [facility] V28) 11/15/2021 DX:Chronic diastoli c congestive heart failure (HCC) DM (diabetes mellitus) with peripheral vascular complication ([facility] V24, [facility] V28) 12/25/2011 DX:DM (diabetes mellitus) w ith peripheral vascular complication (HCC); COMMENT: ED. Iliac artery aneurysm, right ([facility] V24) 07/19/2020 DX:Iliac artery aneurysm, ri ght ([facility]) Family History Medical History Relation Name Comments No Known Problems Aunt No Known Problems Brother Aneurysm Father Arthritis Father Other: circulation problems Father hypertension No Known Problems Maternal Grandfather No Known Problems Maternal Grandmother Breast cancer Mother No Known Problems Other Arthritis Paternal Grandfather No Known Problems Paternal Grandmother No Known Problems Sister No Known Problems Uncle Blindness Neg Hx Cataracts Neg Hx Glaucoma Neg Hx Macular degeneration Neg Hx Strabismus Neg Hx Relation Name Status Comments Aunt Brother Father Maternal Grandfather Maternal Grandmother Mother Other Paternal Grandfather Paternal Grandmother Sister Uncle Social History Tobacco Use Types Packs/Day Years Used Date Smoking Tobacco: Former Cigarettes 0.5 31 0 08/12/1968 - 08/11/1999 Smokeless Tobacco: Never Alcohol Use Standard Drinks/Week Comments Yes 0 (1 standard drink = 0.6 oz pur e alcohol) occasional Housing Instability Answer Date Recorde d Are you worried that in the next 2 months you may not have stable housing? No 02/11/2025 Food Access & Nutrition Answer Date Rec orded Do you have access to a vari ety of food including fruits and vegetables? Yes 02/11/2025 Access to Healthcare Answer Date Record ed Within the last 3 months, ho w many times did you visit the emergency department for your medical care? 2 02/11/2025 Health Literacy Answer Date Recorded How often do you need to hav e someone help you when you read instructions, pamphlets, or other written material from your doctor or pharmacy? Never 02/11/2025 Caregiver: How often do you need to have someone help you when you read instructions, pamphlets, or other written material from your doctor or pharmacy? Not on file 02/11/2025 Financial Risk Answer Date Recorded How hard is it for you to pa y for the very basics like food, housing, medical care, and air conditioning / heating? Not very hard 02/11/2025 Transportation Answer Date Recorded Has the lack of transportati on kept you from meetings, work, or from getting things needed for daily living? No Has the lack of transportati on kept you from medical appointments or from getting medications? No 02/11/2025 Social Isolation Answer Date Recorded How often do you feel lonely or isolated from th ose around you? Never 02/11/2025 Food Risk Answer Date Recorded Within the past 12 months we worried whether our food would run out before we got money to buy more. Never true 02/11/2025 Within the past 12 months th e food we bought just didn't last and we didn't have money to get more. Never true 02/11/2025 Dependent Care Answer Date Recorded Do you need help finding or paying for care for your loved ones. For example, child nutrition director or elderly care for an older adult? No 02/11/2025 Education Answer Date Recorded Do you think completing more education or training, like finishing a GED, going to college, or learning a trade, would be helpful for you? N/A 02/11/2025 Employment and Income Answer Date Recor ded During the last four weeks, have you been actively looking for work? No 02/11/2025 Living Situation Answer Date Recorded What is your living situation? Unrecognized valu e 02/11/2025 Interpersonal Safety Answer Date Record ed Physical Abuse Unrecognized value 06/14/2025 Verbal Abuse Unrecognized value 06/14/2025 Sex and Gender Information Value Date Recorded Sex Assigned at Male 11/30/2024 10:37 AM EDT Legal Sex Male 6:36 PM EST Gender Identity Male 11/30/2024 10:37 AM EDT Sexual Orientation Not on file Obstetrics History Last Filed Vital Signs Vital Sign Reading Time Taken Comments Blood Pressure 113/72 06/21/2025 7:23 AM EST Pulse 94 06/21/2025 7:23 AM EST Temperature 36.4 C (97.5 F) 06/21/2025 7:23 AM EST Respiratory Rate 20 06/21/2025 3:56 AM EST Oxygen Saturation 100% 06/21/2025 8:00 AM EST Inhaled Oxygen Concentration - - Weight 70.3 kg (155 lb) 06/18/2025 8:09 AM EST Height 177.8 cm (5' 10 ) 06/18/2025 8:09 AM EST Body Mass Index 22.24 06/18/2025 8:09 AM EST Plan of Treatment Upcoming Encounters Date Type Department Care Team (Late st Contact Info) Description 07/19/2025 11:00 AM EST Office Visit Adult Medicine [address] [phone] Juan Acosta MD [address] [place] [address] 08/02/2025 9:10 AM EST Office Visit [facility] [address] [facility] [address] [place] [address] Katiana Keen NP [address] [place] [address] [place] [phone] 12/06/2025 11:00 AM EDT Office Visit Adult Medicine [place] - [address] [phone] Juan Acosta MD [address] [place] [phone] Health Maintenance Due Date Last Done Comments Diabetes: Annual Retina Eye Exam 1960 Zoster Vaccines (1 of 2) 04/25/2012 02/29/2012 Diabetes: Annual Foot Exam 08/21/2024 08/21/2023 Hepatitis B Vaccines (3 of 3 - 19+ 3-dose series) 07/18/2025 03/20/2025, 02/13/2025, 01/16/2025 Medicare Annual Wellness Visit 08/06/2025 08/06/2024 COVID-19 Vaccine (6 - Pfizer risk 2024- season) 2025 05/24/2025, 05/28/2022, 07/12/2021, Additional history exists Diabetes: Blood Sugar Control Test (HGBA1C) 12/12/2025 06/14/2025, 12/21/2024, 11/30/2024, Additional history exists Social Influencers of Health Screening 02/11/2026 02/11/2025 Hypertension/CHF/CAD Annual BMP Blood Test 06/19/2026 06/19/2025, 06/18/2025, 06/17/2025, Additional history exists Falls Risk Assessment 06/21/2026 06/21/2025 , 05/31/2025, 08/06/2024, Additional history exists DTaP,Tdap,and Td Vaccines (3 - Td or Tdap) 01/31/2027 01/31/2017, 04/09/2007 Cholesterol Screening (Lipid Panel) 05/28/2028 05/28/2023 Hepatitis C Screening Completed 12/06/2024, 013 Pneumococcal Vaccine: 50+ Years Completed 01/14/2025, 06/06/2017, 09/09/2014, Additional history exists Influenza Vaccine Completed 05/04/2025, , 06/22/2021, Additional history exists Depression Screening Completed 05/24/2025 RSV Immunization Adult Patients Completed 05/24/2025 HIB Vaccines Aged Out No longer eligi ble based on patient's age to complete this topic HPV Vaccines Aged Out No longer eligi ble based on patient's age to complete this topic Hepatitis A Vaccines Aged Out No long er eligible based on patient's age to complete this topic IPV Vaccines Aged Out No longer eligi ble based on patient's age to complete this topic MMR Vaccines Aged Out No longer eligi ble based on patient's age to complete this topic Meningococcal ACWY Vaccine Aged Out N o longer eligible based on patient's age to complete this topic Meningococcal B Vaccine Aged Out No l onger eligible based on patient's age to complete this topic RSV Immunization Patients Under 20 months Aged Out No longer eligible based on patient's age to complete this topic Varicella Vaccines Aged Out No longer eligible based on patient's age to complete this topic Goals Goal Patient Goal Type Associated Problems Recent Progress Patient-Stated? Author Autogenera doug Goal Care Plan Autogenerated Problem No [employer]lee [employer] Implanted Type Area Slope Tender Device Identifier Shelf Expiration Date Model / Serial / Lot Kit Catheter 16cm 7fr Arrowg Dedrick Blue Plus Intro Ldcn 3 Lum - [id number] - [id number] Implanted:Qty : 1 on 11/30/2024 by Randall Villarreal MD at [facility] Central/Kiara pheral Catheters and Ports Right: Internal Jugular TELEFLEX ARROW [id number] 01/24/2026 [id number] / [id number] / [id number] Cath Dial W/Vt Kt [id number] Palindrome Precision - [id number] - [id number] Implanted:Qty : 1 on 11/30/2024 by Randall Villarreal MD at [facility] Dialysis Catheters Right: Chest Wall [facility] [id number] 01/09/2029 [id number] / [id number] / [id number] Hemostat Absorb 1x2 Surgicel Fibrillar - Sna - [id number] Implanted:Qty : 1 on 06/14/2025 by Gerardo Bird MD at [facility] Hemostasis Left: Leg [employer] 05/11/2026 1961 / NA / [id number] Stent Viabahn Heparin [id number] cm 8f - [id number] - [id number] Implanted:Qty : 1 on 06/14/2025 by Gerardo Bird MD at [facility] Peripheral Vasc Drug Eluting Stents Left: Leg [employer] [id number] 11/08/2027 [id number] / [id number] / NA Procedures Procedure Name Priority Date/Time Associated Diagnosis Comments OXYGEN THERAPY, ADULT Routine 06/20/2025 8:00 AM EST FERRITIN Add-On 06/19/2025 8:59 AM EST IRON AND TIBC Add-On 06/19/2025 8:59 AM EST COMPLETE BLOOD COUNT STAT 06/19/2025 8:59 AM EST BASIC METABOLIC PANEL STAT 06/19/2025 8:59 AM EST POCT GLUCOSE BLOOD Routine 06/19/2025 8: 57 AM EST OXYGEN THERAPY, ADULT Routine 06/19/2025 8:00 AM EST CPAP NIV Routine 06/18/2025 10:00 PM EST OXYGEN THERAPY, ADULT Routine 06/18/2025 8:00 PM EST HEMODIALYSIS INPATIENT Routine 06/18/2025 12:29 PM EST TRANSTHORACIC ECHOCARDIOGRAM (TTE) COMPLETE W/ CONTRAST Routine 06/18/2025 9:00 AM EST Atrial fibrillation (CMS/HCC V24, CMS/HCC V28) OXYGEN THERAPY, ADULT Routine 06/18/2025 8:00 AM EST CBC WITH AUTO DIFFERENTIAL Routine 06/18/2025 5:04 AM EST MAGNESIUM Routine 06/18/2025 5:04 AM EST BASIC METABOLIC PANEL Routine 06/18/2025 5:04 AM EST CBC AND DIFFERENTIAL Routine 06/18/2025 5:04 AM EST CPAP NIV Routine 06/17/2025 10:00 PM EST OXYGEN THERAPY, ADULT Routine 06/17/2025 8:01 PM EST TROPONIN I HIGH SENSITIVITY STAT 06/17/2025 12:06 PM EST OXYGEN THERAPY, ADULT Routine 06/17/2025 12:04 PM EST OXYGEN THERAPY, ADULT Routine 06/17/2025 12:04 PM EST OXYGEN THERAPY, ADULT Routine 06/17/2025 12:04 PM EST ECG 12-LEAD Routine 06/17/2025 12:03 PM EST POCT GLUCOSE BLOOD Routine 06/17/2025 11:12 AM EST POCT GLUCOSE BLOOD Routine 06/17/2025 8: 19 AM EST CBC WITH AUTO DIFFERENTIAL Routine 06/17/2025 6:30 AM EST MAGNESIUM Routine 06/17/2025 6:30 AM EST BASIC METABOLIC PANEL Routine 06/17/2025 6:30 AM EST CBC AND DIFFERENTIAL Routine 06/17/2025 6:30 AM EST POCT GLUCOSE BLOOD Routine 06/16/2025 4: 20 PM EST HEMODIALYSIS INPATIENT Routine 06/16/2025 4:11 PM EST POCT GLUCOSE BLOOD Routine 06/16/2025 11:13 AM EST POCT GLUCOSE BLOOD Routine 06/16/2025 7: 28 AM EST PROTHROMBIN TIME WITH INR STAT Add-on 06/16/2025 6:22 AM EST ACTIVATED PARTIAL THROMBOPLASTIN TIME Timed 06/16/2025 6:22 AM EST LAVENDER - EDTA Routine 06/16/2025 6:18 AM EST SST - GOLD Routine 06/16/2025 6:18 AM EST EXTRA TUBES Routine 06/16/2025 6:18 AM EST ACTIVATED PARTIAL THROMBOPLASTIN TIME Timed 06/16/2025 12:15 AM EST CPAP NIV Routine 06/15/2025 10:00 PM EST POCT GLUCOSE BLOOD Routine 06/15/2025 8: 05 PM EST ACTIVATED PARTIAL THROMBOPLASTIN TIME Timed 06/15/2025 6:27 PM EST POCT GLUCOSE BLOOD Routine 06/15/2025 4: 22 PM EST POCT GLUCOSE BLOOD Routine 06/15/2025 1: 16 PM EST ACTIVATED PARTIAL THROMBOPLASTIN TIME Timed 06/15/2025 12:01 PM EST ACTIVATED PARTIAL THROMBOPLASTIN TIME Timed 06/15/2025 6:54 AM EST POCT GLUCOSE BLOOD Routine 06/15/2025 6: 04 AM EST COMPLETE BLOOD COUNT Timed 06/15/2025 5:59 AM EST BASIC METABOLIC PANEL Routine 06/15/2025 5:59 AM EST ACTIVATED PARTIAL THROMBOPLASTIN TIME Timed 06/15/2025 1:37 AM EST ACTIVATED PARTIAL THROMBOPLASTIN TIME Timed 06/14/2025 11:36 PM EST CPAP NIV Routine 06/14/2025 10:00 PM EST POCT GLUCOSE BLOOD Routine 06/14/2025 8: 26 PM EST POCT GLUCOSE BLOOD Routine 06/14/2025 3: 35 PM EST POCT ACTIVATED CLOTTING TIME, KAOLIN Routine 06/14/2025 2:53 PM EST POCT ACTIVATED CLOTTING TIME, KAOLIN Routine 06/14/2025 2:37 PM EST TH AN ENDOTRACHEAL(NO CHARGE) Routine 06/14/2025 2:07 PM EST TH AN ARTERIAL LINE (CHARGE) Routine 06/14/2025 2:03 PM EST POCT ACTIVATED CLOTTING TIME, KAOLIN Routine 06/14/2025 2:02 PM EST PREPARE RBC STAT 06/14/2025 1:52 PM EST BYPASS FEM-POP ENDO VEIN HARVEST 06/14/2025 1:29 PM EST Case Notes MOVE TO OR 9 POCT GLUCOSE BLOOD Routine 06/14/2025 12:53 PM EST ACTIVATED PARTIAL THROMBOPLASTIN TIME Timed 06/14/2025 12:24 PM EST ECG 12-LEAD Routine 06/14/2025 12:05 PM EST HEMODIALYSIS INPATIENT Routine 06/14/2025 11:11 AM EST TYPE AND SCREEN Routine 06/14/2025 11:07 AM EST POCT ACTIVATED CLOTTING TIME, KAOLIN Routine 06/14/2025 10:34 AM EST ANGIOGRAPHY LOWER EXT LEFT Routine 06/14/2025 10:20 AM EST Popliteal artery aneurysm, bilateral (CMS/HCC V24) POCT GLUCOSE BLOOD Routine 06/14/2025 8: 25 AM EST POCT GLUCOSE BLOOD Routine 06/14/2025 8: 25 AM EST ACTIVATED PARTIAL THROMBOPLASTIN TIME STAT 06/14/2025 5:48 AM EST VAS US DUPLEX LOWER EXT ARTERIES BILAT W DOPPLER STAT 06/14/2025 4:28 AM EST Peripheral arterial disease (CMS/HCC V24) HEMOGLOBIN A1C Add-On 06/14/2025 3:49 AM EST COMPREHENSIVE METABOLIC PANEL STAT 06/14/2025 3:49 AM EST ACTIVATED PARTIAL THROMBOPLASTIN TIME STAT 06/14/2025 3:49 AM EST PROTHROMBIN TIME WITH INR STAT 06/14/2025 3:49 AM EST COMPLETE BLOOD COUNT STAT 06/14/2025 3:49 AM EST HEPATITIS C ANTIBODY Add-On 12/06/2024 6:12 AM EDT DIABETES FOOT EXAM Routine 08/21/2023 LIPID PANEL Routine 05/28/2023 FALLS RISK ASSESSMENT Routine 05/14/2023 from Last 3 Months or Most Recently Relevant to Health Maintenance Results * (ABNORMAL) Iron and TIBC (06/19/2025 8:59 AM EST) Iron 39(L) 50 - 160 mcg/dL LAB CHEMISTRY METHOD 06/19/2025 2:51 PM EST [facility] TIBC 162(L) 250 - 450 mcg/dL LAB CHEMISTRY METHOD 06/19/2025 2:51 PM EST [facility] Iron Saturation 24 20 - 50 % LAB CHEMISTRY METHOD 06/19/2025 2:51 PM EST [facility] Blood Venous blood specimen / Unknown Venipuncture / Unknown 06/19/2025 8:59 AM EST 06/19/2025 9:16 AM EST us Denita Powers MD LAB BLOOD ORDERABLES Final Re sult [facility] [address] [place] [address], [place] [phone] * (ABNORMAL) Complete blood count (06/19/2025 8:59 AM EST) Only the most recent of3 resultswithin the time period is included. [facility] WBC 6.1 4.8 - 10.8 K/mcL LAB HEMETOLOGY METHOD 06/19/2025 9:27 AM [facility] RBC 2.30(L) 4.50 - 5.50 M/mcL LAB HEMETOLOGY METHOD 06/19/2025 9:27 AM [facility] Hemoglobin 7.9(L) 13.5 - 17.5 g/dL LAB HEMETOLOGY METHOD 06/19/2025 9:27 AM [facility] Hematocrit 24.5(L) 42.0 - 54.0 % LAB HEMETOLOGY METHOD 06/19/2025 9:27 AM [facility] MCV 106.1(H) 79.0 - 98.0 FL LAB HEMETOLOGY METHOD 06/19/2025 9:27 AM [facility] MCH 34.2(H) 27.0 - 32.0 pcg LAB HEMETOLOGY METHOD 06/19/2025 9:27 AM [facility] MCHC 32.2 32.0 - 37.0 g/dL LAB HEMETOLOGY METHOD 06/19/2025 9:27 AM [facility] RDW 16.4(H) 11.0 - 15.0 % LAB HEMETOLOGY METHOD 06/19/2025 9:27 AM [facility] Platelets 184 130 - 400 K/mcL LAB HEMETOLOGY METHOD 06/19/2025 9:27 AM [facility] MPV 10.0 7.0 - 11.0 FL LAB HEMETOLOGY METHOD 06/19/2025 9:27 AM [facility] NRBC 0.0 <1.0 % LAB HEMETOLOGY METHOD 06/19/2025 9:27 AM [facility] NRBC Absolute 0.00 <0.10 K/mcL LAB HEMETOLOGY METHOD 06/19/2025 9:27 AM EST [facility] Blood Venous blood specimen / Unknown Venipuncture / Unknown 06/19/2025 8:59 AM EST 06/19/2025 9:16 AM EST Marino Coppola MD LAB BLOOD ORDERABLES Final Re sult [facility] [address] [place] [address], [place] [phone] * (ABNORMAL) Ferritin (06/19/2025 8:59 AM EST) Pathologist [facility] Ferritin 1,641(H) 26 - 388 ng/mL LAB CHEMISTRY METHOD 06/19/2025 3:06 PM EST [facility] Blood Venous blood specimen / Unknown Venipuncture / Unknown 06/19/2025 8:59 AM EST 06/19/2025 9:16 AM EST Denita Powers MD LAB BLOOD ORDERABLES Final Re sult Performing Organization Address [facility]/ZIP Co de Phone Number [facility] [address] [place] [address], [place] [phone] * (ABNORMAL) Basic metabolic panel (06/19/2025 8:59 AM EST) Only the most recent of4 resultswithin the time period is included. Sodium 131(L) 133 - 145 mmol/L LAB CHEMISTRY METHOD 06/19/2025 9:52 AM EST [facility] Potassium 3.8 3.5 - 5.5 mmol/L LAB CHEMISTRY METHOD 06/19/2025 9:52 AM EST [facility] Chloride 94(L) 96 - 110 mmol/L LAB CHEMISTRY METHOD 06/19/2025 9:52 AM EST [facility] CO2 28 21 - 32 mmol/L LAB CHEMISTRY METHOD 06/19/2025 9:52 AM [facility] Anion Gap 9 3 - 11 LAB CHEMISTRY METHOD 06/19/2025 9:52 AM [facility] Glucose 149(H) 70 - 100 mg/dL LAB CHEMISTRY METHOD 06/19/2025 9:52 AM [facility] BUN 48(H) 5 - 25 mg/dL LAB CHEMISTRY METHOD 06/19/2025 9:52 AM [facility] Creatinine 5.34(H) 0.70 - 1.30 mg/dL LAB CHEMISTRY METHOD 06/19/2025 9:52 AM [facility] eGFR 10(L) >=60 mL/min/1. 73m2 LAB CHEMISTRY METHOD 06/19/2025 9:52 AM [facility] Comment:Calculation based on the Chronic Kidney Disease Epidemiology Collaboration (CKD-EPI) equation refit without adjustment for race. BUN/Creatinine Ratio 9.0 LAB CHEMISTRY METHOD 06/19/2025 9:52 AM [facility] Calcium 7.7(L) 8.5 - 10.5 mg/dL LAB CHEMISTRY METHOD 06/19/2025 9:52 AM [facility] Blood Venous blood specimen / Unknown Venipuncture / Unknown 06/19/2025 8:59 AM EST 06/19/2025 9:16 AM EST us Marino Coppola MD LAB BLOOD ORDERABLES Final Re sult [facility] [address] [place] [address], * (ABNORMAL) POCT Glucose, blood (06/19/2025 8:57 AM EST) Only the most recent of15 resultswithin the time period is included. Glucose POCT 140(H) 70 - 100 mg/dL 06/19/2025 8:57 AM EST [facility] Blood Capillary blood specimen / Unknown 06/19/2025 8:57 AM EST 06/19/2025 8:58 AM EST us Marino Coppola MD LAB POINT OF CARE TE ST DOCKED DEVICE UNSOLICITED RESULTS Final Result [facility] [address] [place] [address], [place] [phone] * (ABNORMAL) TRANSTHORACIC ECHOCARDIOGRAM (TTE) COMPLETE W/ CONTRAST (06/18/2025 9:00 AM EST) Left Atrium Minor Volborg 8.1 cm CV PACS Left Atrium Major Volborg 8.1 cm CV PACS LA Area Sys (A2C) 40 cm2 CV PACS LA Area Sys (A4C) 36 cm2 CV PACS LA Volume (BP) 146 mL CV PACS RA Area 23.2 cm2 CV PACS RA 2D Volume 75 mL CV PACS AV Regurgitation PHT 285 ms CV PACS AR Max Velocity 4.2 m/s CV PACS AV Regurgitant Volume 70 mmHg CV PACS AV Peak Keaton 3.2 m/s CV PACS AV Peak Gradient 41 mmHg CV PACS AV Mean Gradient 26 mmHg CV PACS Ao VTI 57.3 cm CV PACS AV Area Continuity Equation 1.1 cm2 CV PACS AV Area Peak Velocity 1.1 cm2 CV PACS Ascending Aorta 3.1 cm CV PACS IVSD 1.0 0.6 - 1.0 cm CV PACS LVIDD 5.3 4.2 - 5.8 cm CV PACS LVIDS 4.3(A) 2.5 - 4.0 cm CV PACS LVOT Diameter 2.0 cm CV PACS LVOT Mean Grad 2 mmHg CV PACS LVOT Peak VTI 19.4 cm CV PACS LVOT Mean Keaton 0.7 m/s CV PACS LVOT Peak Keaton 1.2 m/s CV PACS LVOT Peak Gradient 4 mmHg CV PACS LVPWD 1.0 0.6 - 1.0 cm CV PACS MV E' Tissue Velocity Lateral 12 cm/s CV PACS MV E' Tissue Velocity Septal 8 cm/s CV PACS LVOT Area 3.1 cm2 CV PACS LVOT Stroke Volume 71 mL CV PACS MV Peak E Keaton 1.40 m/s CV PACS RV Diastolic Basal Dimension 3.6 2.5 - 4.1 cm CV PACS RV S' 11 cm/s CV PACS TR Peak Velocity 3.00 m/s CV PACS TR Peak Gradient 32 mmHg CV PACS E/E' Ratio Septal 18 CV PACS E/E' Ratio Averaged 15 CV PACS LVOT Stroke Index 38 mL/m2 CV PACS Relative Wall Thickness ratio 0.38 0.24 - 0.42 CV PACS LVOT:AV VTI Index 0.34 CV PACS FS 19 % CV PACS LV Mass 2D 200 96 - 200 g CV PACS Ascending Aorta Index 1.66 cm/m2 CV PACS LVOT flow 220 mL/s CV PACS RA 2D Volume Index 40 18 - 32 mL/m2 CV PACS JENNI Index (VTI) 0.57 cm2/m2 CV PACS JENNI Index (Pk Keaton) 0.59 cm2/m2 CV PACS LVIDD Index 2.83 cm/m2 CV PACS LVIDS Index 2.30 cm/m2 CV PACS AV Velocity Ratio 0.38 CV PACS E/E' Ratio Lateral 12 CV PACS LA Volume Index (BP) 78 mL/m2 CV PACS LV Mass Index 2D 107 50 - 102 g/m2 CV PACS BSA 1.86 m2 CV PACS Ejection Fraction (BP) 38 % CV PACS Ejection Fraction (A4C) 32 % CV PACS Ejection Fraction (A2C) 49 % CV PACS LV Diastolic Volume (BP) 165(A) 62 - 150 mL CV PACS LV Diastolic Volume Index (BP) 88(A) 34 - 74 mL/m2 CV PACS LV Systolic Volume (BP) 102(A) 21 - 61 mL CV PACS LV Systolic Volume Index (BP) 55(A) 11 - 31 mL/m2 CV PACS LV EDV (A4C) 145 mL CV PACS LV EDV Index (A4C) 78 mL/m2 CV PACS LV ESV (A4C) 98 mL CV PACS LV ESV Index (A4C) 52 mL/m2 CV PACS LV EDV (A2C) 186 mL CV PACS LV EDV Index (A2C) 99 mL/m2 CV PACS LV ESV (A2C) 95 mL CV PACS LV ESV Index (A2C) 51 mL/m2 CV PACS LA Volume (A-L) 94 mL CV PACS LA Volume Index (A-L) 50 mL/m2 CV PACS RV Free Wall Peak S' 10 cm/s CV PACS RA Major Volborg 6.4 cm CV PACS RA Major Volborg Index 3.4(A) 2.1 - 2.7 cm/m2 CV PACS AV Area 2D 1.2 cm2 CV PACS JENNI Index (2D) 0.64 cm2/m2 CV PACS LV EF MOD 2C 49 % CV PACS LV EF 4C A-L 36 % CV PACS LV EDV 4C A-L 146 mL CV PACS LV Length Sys (A4C) 8.2 cm CV PACS LV Length Ruiz (A4C) 9.1 cm CV PACS AV Area Index 0.7 CV PACS Left Ventricular Stroke Volume by 2-D Biplane-MOD 64 mL CV PACS Right Ventricular Peak Systolic Pressure 51 mmHg CV PACS Est. RA Pressure 15 mmHg CV PACS Aortic Root 3.0 cm CV PACS Aortic Root Index 1.60 cm/m2 CV PACS Anatomical Region Laterality Modality Ultrasound Narrative 06/18/2025 11:02 AM EST Left ventricle cavity size is normal. Left ventricular systolic function is moderately decreased. EF by 2D Kirby biplane is 38%. Left Ventricle: There is evidence of global hypokinesis that is more pronounced in the basal to mid anterolateral wall and basal inferolateral wall. Right ventricle cavity is normal. Right ventricular systolic function is normal. RV S' 11 cm/sec. Aortic Valve: There is mild - moderate regurgitation. There is possible low flow/low gradient severe aortic stenosis with low ejection fraction. Mitral Valve: There is moderate to severe regurgitation with an eccentrically directed jet. Tricuspid Valve: There is mild regurgitation. The right ventricular systolic pressure is moderately elevated. Estimated RA pressure is 15 mmHg. The RVSP is estimated at 51 mmHg. There is a pleural effusion. Aorta: The visualization of the ascending aorta was suboptimal. Nevertheless, on limited images, there appears to be a linear echodensity in the ascending aorta. Even though this may be artifactual in nature, cannot rule out that this finding represents a significant atheroma versus an aorta dissection flap. Recommend to consider chest CT aortogram (chest CTA) for further evaluation. Abnormal findings were personally discussed with the hospitalist (Dr. Coppola) via telephone on 06/18/2025 at 11 AM. Left Ventricle Left ventricle cavity size is normal. Wall thickness is normal. Systolic function is moderately decreased. The quantitative EF by 2D Kirby biplane is 38%. There is evidence of global hypokinesis that is more pronounced in the basal to mid anterolateral wall and basal inferolateral wall. Unable to assess diastolic function due to arrhythmia Right Ventricle Right ventricle cavity appears normal. Systolic function is normal. RV S' 11 cm/sec. Left Atrium Left atrium cavity is severely dilated. Right Atrium Right atrium cavity is moderately dilated. There is a prominent Eustachian valve. IVC/SVC Inferior vena cava is dilated. RA pressures is estimated to be 15 mmHg (IVC diameter >21 mm and decreases <50% during inspiration). Mitral Valve The leaflets are mildly thickened. There is mild annular calcification. There is moderate to severe regurgitation with an eccentrically directed jet. There is no evidence of mitral valve stenosis. Tricuspid Valve The leaflets exhibit normal excursion. There is mild regurgitation. There is no evidence of tricuspid valve stenosis. The right ventricular systolic pressure is moderately elevated. Estimated RA pressure is 15 mmHg. The RVSP is estimated at 51 mmHg. Aortic Valve The aortic valve is trileaflet. The leaflets are moderately thickened. The leaflets are moderately calcified. There is mild - moderate regurgitation. There is possible low flow/low gradient severe aortic stenosis with low ejection fraction. Pulmonic Valve Pulmonic valve structure is normal. There is trace pulmonic valve regurgitation. There is no evidence of pulmonic valve stenosis. Ascending Aorta The visualization of the ascending aorta was suboptimal. Nevertheless, on limited images, there appears to be a linear echodensity in the ascending aorta. Even though this may be artifactual in nature, cannot rule out that this finding represents a significant atheroma versus an aorta dissection flap. Recommend to consider chest CT aortogram (chest CTA) for further evaluation. The aorta appears normal in size. Pericardium Pericardium appears normal. There is no pericardial effusion. There is a pleural effusion. Study Details Overall the study quality was adequate. Definity contrast was given to enhance imaging. us Isatu Tkaczek [employer] [facility] CV ECHO PROCEDURES Final Result * (ABNORMAL) CBC auto differential (06/18/2025 5:04 AM EST) Only the most recent of2 resultswithin the time period is included. WBC 6.4 4.8 - 10.8 K/mcL LAB HEMETOLOGY METHOD 06/18/2025 7:04 AM [facility] RBC 2.30(L) 4.50 - 5.50 M/mcL LAB HEMETOLOGY METHOD 06/18/2025 7:04 AM [facility] Hemoglobin 8.0(L) 13.5 - 17.5 g/dL LAB HEMETOLOGY METHOD 06/18/2025 7:04 AM [facility] Hematocrit 24.6(L) 42.0 - 54.0 % LAB HEMETOLOGY METHOD 06/18/2025 7:04 AM [facility] MCV 106.5(H) 79.0 - 98.0 FL LAB HEMETOLOGY METHOD 06/18/2025 7:04 AM [facility] MCH 34.6(H) 27.0 - 32.0 pcg LAB HEMETOLOGY METHOD 06/18/2025 7:04 AM [facility] MCHC 32.5 32.0 - 37.0 g/dL LAB HEMETOLOGY METHOD 06/18/2025 7:04 AM [facility] RDW 16.1(H) 11.0 - 15.0 % LAB HEMETOLOGY METHOD 06/18/2025 7:04 AM [facility] Platelets 178 130 - 400 K/mcL LAB HEMETOLOGY METHOD 06/18/2025 7:04 AM [facility] MPV 10.2 7.0 - 11.0 FL LAB HEMETOLOGY METHOD 06/18/2025 7:04 AM [facility] NRBC 0.0 <1.0 % LAB HEMETOLOGY METHOD 06/18/2025 7:04 AM [facility] NRBC Absolute 0.00 <0.10 K/mcL LAB HEMETOLOGY METHOD 06/18/2025 7:04 AM [facility] Neutrophils Relative 59.2 % LAB HEMETOLOGY METHOD 06/18/2025 7:04 AM [facility] Lymphocytes Relative 25.6 % LAB HEMETOLOGY METHOD 06/18/2025 7:04 AM [facility] Monocytes Relative 11.3 % LAB HEMETOLOGY METHOD 06/18/2025 7:04 AM [facility] Eosinophils Relative 3.1 % LAB HEMETOLOGY METHOD 06/18/2025 7:04 AM [facility] Basophils Relative 0.3 % LAB HEMETOLOGY METHOD 06/18/2025 7:04 AM [facility] Immature Granulocytes Relative 0.5 % LAB HEMETOLOGY METHOD 06/18/2025 7:04 AM [facility] Neutrophils Absolute 3.77 1.50 - 7.00 K/mcL LAB HEMETOLOGY METHOD 06/18/2025 7:04 AM [facility] Lymphocytes Absolute 1.63 1.00 - 5.00 K/mcL LAB HEMETOLOGY METHOD 06/18/2025 7:04 AM [facility] Monocytes Absolute 0.72 0.20 - 1.00 K/mcL LAB HEMETOLOGY METHOD 06/18/2025 7:04 AM [facility] Eosinophils Absolute 0.20 0.00 - 0.50 K/mcL LAB HEMETOLOGY METHOD 06/18/2025 7:04 AM [facility] Basophils Absolute 0.02 0.00 - 0.20 K/mcL LAB HEMETOLOGY METHOD 06/18/2025 7:04 AM [facility] Immature Granulocytes Absolute 0.03 0.00 - 0.03 K/mcL LAB HEMETOLOGY METHOD 06/18/2025 7:04 AM EST [facility] Blood Venous blood specimen / Unknown Venipuncture / Unknown 06/18/2025 5:04 AM EST 06/18/2025 6:37 AM EST us [facility]han[facility] BLOOD ORDERABLES Final Resul t Performing Organization Address City/[facility]/ZIP Co de Phone Number [facility] [address], [place] [id number], [place] [phone] * Magnesium (06/18/2025 5:04 AM EST) Only the most recent of2 resultswithin the time period is included. [facility] Magnesium 2.0 1.9 - 2.6 mg/dL LAB CHEMISTRY METHOD 06/18/2025 7:30 AM EST [facility] Blood Venous blood specimen / Unknown Venipuncture / Unknown 06/18/2025 5:04 AM EST 06/18/2025 6:37 AM EST us Isatu Bhardwaj ANIMAL BEHAVIOURIST LAB BLOOD ORDERABLES Final Resul t Performing Organization Address [facility] de Phone Number [facility] [address] [place] [address], [place] [phone] * Troponin I high sensitivity (06/17/2025 12:06 PM EST) [facility] High Sensitivity Troponin I 51 <=79 ng/L LAB CHEMISTRY METHOD 06/17/2025 12:35 PM EST [facility] Blood Venous blood specimen / Unknown Venipuncture / Unknown 06/17/2025 12:06 PM EST 06/17/2025 12:09 PM EST Narrative [facility] - 06/17/2025 12:35 PM EST High levels of biotin in samples may falsely decrease hsTroponin values. Use caution when interpreting hsTroponin results in patients taking biotin who exhibit renal impairment (eGFR <60) or in patients taking more than 20 mg/day of biotin. us Isatu Bhardwaj NP LAB BLOOD ORDERABLES Final Resul t Performing Organization Address [facility] Co de Phone Number [facility] [address] [place] [address], [place] [phone] * ECG 12 lead (06/17/2025 12:03 PM EST) Only the most recent of2 resultswithin the time period is included. Ventricular Rate ECG 74 BPM GEMUSE Atrial Rate 113 BPM GEMUSE QRS Duration 82 ms GEMUSE Q-T Interval 400 ms GEMUSE QTc 444 ms GEMUSE R Vol[place] -39 degrees GEMUSE T [place] -11 degrees GEMUSE ECG Interpretation Atrial fibrillation Left axis deviation Low voltage QRS Possible Anterolateral infarct , age undetermined When compared with ECG of 14-JUN-2025 12:05, No significant change was found Confirmed by CHANDANA WINTERS ([id number]) on 06/18/2025 8:16:00 AM GEMUSE 06/17/2025 12:0 3 PM EST 06/18/2025 8:16 AM EST us Isatu Bhardwaj ANIMAL BEHAVIOURIST ECG ORDERABLES Final Result Performing Organization Address [facility] de Phone Number GEMUSE * (ABNORMAL) APTT (06/16/2025 6:22 AM EST) Only the most recent of10 resultswithin the time period is included. Pathologist [facility] aPTT 45.4(H) 24.1 - 39.3 sec LAB COAGULATION METHOD 06/16/2025 7:41 AM EST [facility] Blood Venous blood specimen / Unknown Venipuncture / Unknown 06/16/2025 6:22 AM EST 06/16/2025 7:07 AM EST Marino Coppola MD LAB BLOOD ORDERABLES Final Re sult Performing Organization Address [facility] Co de Phone Number [facility] [address] [place] [address], [place] [phone] * Prothrombin Time with INR - STAT (06/16/2025 6:22 AM EST) Only the most recent of2 resultswithin the time period is included. Protime 12.6 10.6 - 13.9 sec LAB COAGULATION METHOD 06/16/2025 9:35 AM EST [facility] INR 1.0 LAB COAGULATION METHOD 06/16/2025 9:35 AM EST [facility] Blood Venous blood specimen / Unknown Venipuncture / Unknown 06/16/2025 6:22 AM EST 06/16/2025 7:07 AM EST us Marino Coppola MD LAB BLOOD ORDERABLES Final Re sult Performing Organization Address City/[facility]/ZIP Co de Phone Number [facility] [address] [place] [address], [place] [phone] * SST tube (06/16/2025 6:18 AM EST) Extra Tube Hold for add-ons. 06/16/2025 9:01 AM EST [facility] Comment:Auto resulted. Blood Venous blood specimen / Unknown Venipuncture / Unknown 06/16/2025 6:18 AM EST 06/16/2025 7:12 AM EST us Marino Coppola MD LAB BLOOD ORDERABLES Final Re sult [facility] [address] [place] [address], [place] [phone] * Lavender tube (06/16/2025 6:18 AM EST) Extra Tube Hold for add-ons. 06/16/2025 9:01 AM EST [facility] Comment:Auto resulted. Blood Venous blood specimen / Unknown Venipuncture / Unknown 06/16/2025 6:18 AM EST 06/16/2025 7:12 AM EST us Marino Coppola MD LAB BLOOD ORDERABLES Final Re sult Performing Organization Address [facility]/ZIP Co de Phone Number [facility] [address] [place] [address], [place] [phone] * (ABNORMAL) POCT activated clotting time,kaolin (06/14/2025 2:53 PM EST) Only the most recent of4 resultswithin the time period is included. Activated Clotting Time Kaolin 255(H) 74 - 137 sec 06/14/2025 3:37 PM EST [facility] Blood Arterial blood specimen / Unknown 06/14/2025 2:53 PM EST 06/14/2025 3:39 PM EST us Marino Coppola MD LAB POINT OF CARE TE ST DOCKED DEVICE UNSOLICITED RESULTS Final Result Performing Organization Address [facility]/ZIP Co de Phone Number [facility] [address] [place] [address], [place] [phone] * TH AN ENDOTRACHEAL(NO CHARGE) (06/14/2025 2:07 PM EST) Narrative Andrea Reed CRNA - 06/14/2025 2:07 PM EST Andrea Reed CRNA 06/14/2025 2:08 PM General Information and Staff Patient location during procedure: OR Performed by: Andrea Reed CRNA Authorized by: Zeke Reddy MD Intubation Airway not difficult Reason: elective Final Airway Details Successful airway: ETT Cuffed: yes Successful intubation technique: direct laryngoscopy Adjuncts used in placement: intubating stylet Endotracheal tube insertion site: oral Blade: Jacob Blade size: #3 ETT size (mm): 7.0 Cormack-Lehane Classification: grade I - full view of glottis Placement verified by: chest auscultation, capnometry and palpation of cuff Measured from: lips ETT to lips (cm): 21 Ventilation between attempts: none Final airway type: endotracheal airway Indications and Patient Condition Indications for airway management: anesthesia Sedation level: No Preoxygenated: yesSoft Tissue Damage: No Dentition Unchanged: Yes Patient position: neutral MILS maintained throughout Mask difficulty assessment: 2 - vent by mask + OA or adjuvant +/- NMBA Start Time: 06/14/2025 1:44 PMStop Time: 06/14/2025 1:44 PM us Zeke Reddy MD ANESTHESIA ORDERABLES Final Re sult * TH AN ARTERIAL LINE (CHARGE) (06/14/2025 2:03 PM EST) Zeke Marquez MD - 06/14/2025 2:03 PM EST Zeke Reddy MD 06/14/2025 2:03 PM Arterial Line Performed by: Zeke Reddy MD Authorized by: Zeke Reddy MD Consent: Verbal consent obtained. Written consent obtained Risks and benefits: risks, benefits and alternatives were discussed Consent given by: patient Patient understanding: patient states understanding of the procedure being performed Relevant documents: relevant documents present and verified Patient identity confirmed: verbally with patient, arm band, provided demographic data and hospital-assigned identification number Time out: Immediately prior to procedure a time out was called to verify the correct patient, procedure, equipment, child support specialist and site/side marked as required. Indications: hemodynamic monitoring Location: right radial Anesthesia: local infiltration Anesthesia: Local Anesthetic: lidocaine 1% without epinephrine Sedation: Patient sedated: yes Sedation type: anxiolysis Sedatives: fentanyl and see MAR for details Vitals: Vital signs were monitored during sedation. Eric's test normal: yes Needle gauge: 20 Seldinger technique: Seldinger technique used Number of attempts: 1 Post-procedure: line sutured and dressing applied Post-procedure CMS: normal Patient tolerance: Patient tolerated the procedure well with no immediate complications Comments: Side: right Preparation: Hand hygiene, hat, mask, sterile gloves. Chloraprep to insertion site. Eric's test performed. Ultrasound guidance throughout, image saved to chart. Arrow Seldinger needle used. Air removed from line, flushed. Appropriate waveform noted. Line sutured into place. Tegaderm to insertion site. No complications. Staffing Anesthesiologist: Zeke Reddy MD us Zeke Reddy MD ANESTHESIA ORDERABLES Final Re sult * Prepare RBC: 2 Units, Leukoreduced (06/14/2025 1:52 PM EST) Product Code [id number] 06/15/2025 7:11 AM [facility] Unit Number [id number] 06/15/20 7:11 AM [facility] Crossmatch Compatible 06/14/2025 2:18 PM [facility] Dispense Status Released From Crossmatch 06/15/2025 7:11 AM [facility] Unit ABO Rh OPOS 06/15/2025 7:11 AM [facility] Unit Expiration Date Time [id number] 06/15/2025 7:11 AM [facility] Unit Blood Type 5100 06/15/2025 7:11 AM [facility] Product Code [id number] 06/15/2025 7:11 AM [facility] Unit Number [id number] 06/15/20 7:11 AM [facility] Crossmatch Compatible 06/14/2025 2:18 PM [facility] Dispense Status Released From Crossmatch 06/15/2025 7:11 AM [facility] Unit ABO Rh OPOS 06/15/2025 7:11 AM [facility] Unit Expiration Date Time [id number] 06/15/2025 7:11 AM [facility] Unit Blood Type 5100 06/15/2025 7:11 AM [facility] Blood Venous blood specimen / Unknown 06/14/2025 1:52 PM EST 06/14/2025 12:31 PM EST Zeke Reddy MD BLOOD BANK PRODUCT ORDERABLES Final Result [facility] [address] [place] [address], [place] [phone] * Type and screen (06/14/2025 11:07 AM EST) ABO Group O 06/14/2025 2:16 PM EST [facility] Rh Type Positive 06/14/2025 2:16 PM EST [facility] Antibody Screen Negative 06/14/2025 2:16 PM EST [facility] Blood Venous blood specimen / Unknown Venipuncture / Unknown 06/14/2025 11:07 AM EST 06/14/2025 12:31 PM EST us oCnnie BRIGGS LAB BLOOD BANK TEST ORDERABLE S Final Result Performing Organization Address City/[facility] Co de Phone Number [facility] [address] [place] [address], [place] [phone] * ANGIOGRAPHY LOWER EXT LEFT (06/14/2025 10:20 AM EST) Anatomical Region Laterality Modality X-Ray Angiograph y Narrative 06/15/2025 6:52 AM EST Per op note Study Details Per consult Clinical Background Per consult Procedure Details Per op note us Connie BRIGGS CV INVASIVE VASCULAR PROCEDUR ES Final Result * Vascular US duplex lower extremity arteries bilateral with complete Doppler (06/14/2025 4:28 AM EST) Anatomical Region Laterality Modality Vascular, Abdomen Ultrasound 06/14/2025 5:17 AM EST Addenda Addendum by Cody Griffin MD on 06/14/2025 5:24 AM EST ADDENDUM: This report was discussed with Olimpia Mijares RN on Jun 14, 2025 05:23:00 EST. This document has been electronically signed by: Keara Montero on 06/14/2025 05:24:00 Impressions 06/14/2025 5:17 AM EST 1. 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 Given this finding recommend vascular surgery consultation and dedicated CTA examination of the lower extremities. 2. Occlusion of the distal right posterior tibial artery. 3. Regions of both abnormally increased and decreased arterial velocities within the bilateral lower extremities as above with biphasic and monophasic waveforms. Findings are likely consistent with severe calcified atherosclerotic disease and regions of multifocal stenosis. Given extent of disease recommend further evaluation with dedicated CTA examination. 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 Right lower extremity arterial ultrasound The right common femoral artery peak systolic velocity is 42.0 cm/sec with triphasic waveform. Peak systolic velocity within the distal right superficial femoral artery is 36.5 cm/second with triphasic waveform. Peak systolic velocity within the distal right popliteal artery 24.8 cm/sec with biphasic waveform. Occlusion of the distal right posterior tibial artery. Significantly diminished arterial flow within the proximal and mid right posterior tibial arteries measuring 12.7 and 8.9 cm/sec respectively and demonstrating biphasic waveform. Severely elevated mid right anterior tibial artery peak systolic velocity of 195.8 cm/second with biphasic waveform. Distal right anterior tibial artery peak soft velocity of 47.3 cm/sec with biphasic waveform. Left lower extremity arterial ultrasound The left common femoral artery peak systolic velocity is 144.4 cm/second with biphasic waveform. Significantly elevated peak systolic velocities throughout the left superficial femoral arteries with the mid left SFA measuring 190.4 cm/second and demonstrating biphasic waveform. A large aneurysm of the left popliteal artery measuring 8.2 x 4.5 x 6.2 cm. Peak systolic velocity of the left popliteal artery at the aneurysm measures 64.3 cm/second demonstrating monophasic waveform. The distal left popliteal artery fistula velocity of 33.5 cm/sec with monophasic waveform. Decreased peak systolic velocities throughout the left posterior tibial artery which demonstrates monophasic waveform. The peak systolic velocity of the proximal left posterior tibial artery measures 8.2 cm per second with monophasic waveform. Arterial flow throughout the left anterior tibial artery which demonstrates monophasic waveform. The mid left PEDRO with decreased arterial flow of 13.0 cm/sec. 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 Right lower extremity arterial ultrasound The right common femoral artery peak systolic velocity is 42.0 cm/secwith triphasic waveform. Peak systolic velocity within the distal right superficial femoralartery is 36.5 cm/second with triphasic waveform. Peak systolic velocity within the distal right popliteal artery 24.8 cm/sec with biphasic waveform. Occlusion of the distal right posterior tibial artery. Significantly diminished arterial flow within the proximal and mid right posterior tibial arteries measuring 12.7 and 8.9 cm/sec respectively and demonstrating biphasic waveform. Severely elevated mid right anterior tibial artery peak systolicvelocity of 195.8 cm/second with biphasic waveform. Distal right anterior tibial artery peak soft velocity of 47.3 cm/sec with biphasic waveform. Left lower extremity arterial ultrasound The left common femoral artery peak systolic velocity is 144.4 cm/second with biphasic waveform. Significantly elevated peak systolic velocities throughout the left superficial femoral arteries with the mid left SFA measuring 190.4 cm/second and demonstrating biphasic waveform. A large aneurysm of the left popliteal artery measuring 8.2 x 4.5 x 6.2 cm. Peak systolic velocity of the left popliteal artery at the aneurysm measures 64.3 cm/second demonstrating monophasic waveform. The distalleft popliteal artery fistula velocity of 33.5 cm/sec with monophasicwaveform. Decreased peak systolic velocities throughout the left posterior tibial artery which demonstrates monophasic waveform. The peak systolicvelocity of the proximal left posterior tibial artery measures 8.2 cm per second with monophasic waveform. Arterial flow throughout the left anterior tibial artery which demonstrates monophasic waveform. The mid left PEDRO with decreased arterial flow of 13.0 cm/sec. IMPRESSION: 1. 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 Given this finding recommend vascular surgery consultation and dedicated CTA examination of the lower extremities. 2. Occlusion of the distal right posterior tibial artery. 3. Regions of both abnormally increased and decreased arterialvelocities within the bilateral lower extremities as above with biphasic and monophasic waveforms. Findings are likely consistent with severecalcified atherosclerotic disease and regions of multifocal stenosis. Given extent of disease recommend further evaluation with dedicated CTA examination. This document has been electronically signed by: Cody Griffin DO on 06/14/2025 05:17:18 Ama Stephenson MD CV VASCULAR PROCEDURES Edited Result - Final * Hemoglobin A1c (06/14/2025 3:49 AM EST) [facility] Hemoglobin A1C 5.2 <6.5 % LAB CHEMISTRY METHOD 06/14/2025 8:58 PM EST [facility] Mean Bld Glu Estim. 103 mg/dL LAB CHEMISTRY METHOD 06/14/2025 8:58 PM EST [facility] Blood Venous blood specimen / Unknown Venipuncture / Unknown 06/14/2025 3:49 AM EST 06/14/2025 4:06 AM EST Merle BRIGGS LAB BLOOD ORDERABLES Final R esult [facility] [address] [place] [address], [place] [phone] * (ABNORMAL) Comprehensive metabolic panel (06/14/2025 3:49 AM EST) [facility] Sodium 139 133 - 145 mmol/L LAB CHEMISTRY METHOD 06/14/2025 5:38 AM EST [facility] Potassium 3.6 3.5 - 5.5 mmol/L LAB CHEMISTRY METHOD 06/14/2025 5:38 AM EST [facility] Chloride 98 96 - 110 mmol/L LAB CHEMISTRY METHOD 06/14/2025 5:38 AM EST [facility] CO2 30 21 - 32 mmol/L LAB CHEMISTRY METHOD 06/14/2025 5:38 AM EST [facility] Anion Gap 11 3 - 11 LAB CHEMISTRY METHOD 06/14/2025 5:38 AM [facility] Glucose 104(H) 70 - 100 mg/dL LAB CHEMISTRY METHOD 06/14/2025 5:38 AM [facility] BUN 62(H) 5 - 25 mg/dL LAB CHEMISTRY METHOD 06/14/2025 5:38 AM [facility] Creatinine 7.43(H) 0.70 - 1.30 mg/dL LAB CHEMISTRY METHOD 06/14/2025 5:38 AM [facility] eGFR 7(L) >=60 mL/min/1. 73m2 LAB CHEMISTRY METHOD 06/14/2025 5:38 AM [facility] Comment:Calculation based on the Chronic Kidney Disease Epidemiology Collaboration (CKD-EPI) equation refit without adjustment for race. BUN/Creatinine Ratio 8.3 LAB CHEMISTRY METHOD 06/14/2025 5:38 AM [facility] Calcium 9.1 8.5 - 10.5 mg/dL LAB CHEMISTRY METHOD 06/14/2025 5:38 AM [facility] AST (SGOT) 15 10 - 42 unit/L LAB CHEMISTRY METHOD 06/14/2025 5:38 AM [facility] ALT (SGPT) 19 10 - 60 unit/L LAB CHEMISTRY METHOD 06/14/2025 5:38 AM [facility] Alkaline Phosphatase 98 42 - 121 unit/L LAB CHEMISTRY METHOD 06/14/2025 5:38 AM [facility] Total Protein 6.4 6.0 - 8.0 g/dL LAB CHEMISTRY METHOD 06/14/2025 5:38 AM [facility] Albumin 3.1(L) 3.2 - 5.0 g/dL LAB CHEMISTRY METHOD 06/14/2025 5:38 AM [facility] Total Bilirubin 0.5 0.0 - 1.4 mg/dL LAB CHEMISTRY METHOD 06/14/2025 5:38 AM EST [facility] Blood Venous blood specimen / Unknown Venipuncture / Unknown 06/14/2025 3:49 AM EST 06/14/2025 4:06 AM EST Ama Stephenson MD LAB BLOOD ORDERABLES Final Res ult [facility] [address] [place] [address], [place] [phone] * Hepatitis C antibody (12/06/2024 6:12 AM EDT) [facility] Hepatitis C Antibody Negative Negative LAB CHEMISTRY METHOD 12/06/2024 9:52 AM EDT [facility] Blood Blood sample taken from central line / Unknown Venipuncture / Unknown 12/06/2024 6:12 AM EDT 12/06/2024 6:31 AM EDT Milton Hawk MD LAB BLOOD ORDERABLES Final Result [facility] [address] [place] [address], [place] [phone] * Diabetes Foot Exam (08/21/2023) [facility] Diabetes: Annual Foot Exam abstracted Historical Provider HEALTH MAINTENANCE Final Result * Lipid panel (05/28/2023) [facility] LDL/HDL Ratio 3 0 - 4 Triglycerides 108 0 - 150 mg/dL Cholesterol 151 0 - 200 mg/dL HDL 45 >=40 mg/dL LDL Cholesterol 85 0 - 100 mg/dL Blood Venous blood specimen / Unknown Historical Provider LAB BLOOD ORDERABLES Sonya l Result * Falls Risk Assessment (05/14/2023) [facility] Falls Risk Assessment abstracted Historical Provider HEALTH MAINTENANCE Final Result from Last 3 Months or Most Recently Relevant to Health Maintenance Additional Health Concerns Active Problems Noted Date Diagnosed Date Autogenerated Problem 06/14/2025 Insurance MEDICARE [facility] Advance Directives Documents on File Type Date Recorded Patient Manager Motor Expl anation Advance Directives and Living Will 12/04/2024 5:10 PM [facility] Health Care Proxy * Full Code - Default (Latest Code Status on File) Date Activated Date Inactivated Comments 06/14/2025 3:43 PM 06/21/2025 2:16 PM This is ord er is used when code status has not been discussed with the patient, or code status is otherwise unknown/unconfirmed To update the patient's code status, place a code status order. Do not modify or discontinue any currently active code status orders. * Full Code - Confirmed Date Activated Date Inactivated Comments 06/14/2025 5:43 AM 06/14/2025 3:[address] atus was ascertained in the following way: Code status discussion: discussion with patient To update the patient's code status, place a code status order. Do not modify or discontinue any currently active code status orders. * Full Code - Default Date Activated Date Inactivated Comments 06/14/2025 3:23 AM 06/14/2025 5:43 AM This is orde r is used when code status has not been discussed with the patient, or code status is otherwise unknown/unconfirmed To update the patient's code status, place a code status order. Do not modify or discontinue any currently active code status orders. * Full Code - Confirmed Date Activated Date Inactivated Comments 11/30/2024 1:16 PM 12/18/2024 7:43 PM This code sta tus was ascertained in the following way: Code status discussion: discussion with patient To update the patient's code status, place a code status order. Do not modify or discontinue any currently active code status orders. * Full Code - Default Date Activated Date Inactivated Comments 11/30/2024 12:13 PM 11/30/2024 1:16 PM This is ord er is used when code status has not been discussed with the patient, or code status is otherwise unknown/unconfirmed To update the patient's code status, place a code status order. Do not modify or discontinue any currently active code status orders. Healthcare Agents on File Name Relationship Healthcare Agent [facility] Communication [facility] Agent Becca Luna [facility] are Agent Care Teams Photogrammetry Airplane Pilot Relationship Specialty Start Date End Date Juan Acosta MD [address] [place] [phone] PCP - General Internal Medicine 03/25/20
--- OUTSIDE RECORDS SUMMARY | 2025-07-05 06:50 | XMS_ITS | Encounter Summary ---
Author Organization [facility] Address [address] [place] [address] Care Team Providers Care Primary Care Sales Representative Name Role Phone Juan Acosta MD Primary Care Provider [phone] Encounter Details Date Type Department Care Team (Late st Contact Info) Description 11/27/2024 Nurse Triage Adult Medicine [address] [phone] Juan Acosta MD [address] [place] [address] Social History Tobacco Use Types Packs/Day Years [...] got money to buy more. Never true 024 Within the past 12 months th e food we bought just didn't last and we didn't have money to get more. Sometimes true 07/30/2024 Dependent Care Answer Date Recorded Do you need help finding or paying for care for your loved ones. For example, early childhood assistant or elderly care for an older adult? [...] Date Record ed Physical Abuse Unrecognized value 12/01/2024 Verbal Abuse Unrecognized value 12/01/2024 Sex and Gender Information Value Date Recorded Sex Assigned at Male 11/30/2024 10:37 AM EDT Legal Sex Male 6:36 PM EST Gender Identity Male 11/30/2024 10:37 AM EDT Sexual Orientation Not on file documented as of this encounter Progress Notes * Juan Acosta MD - 11/30/2024 6:55 PM EDT noted documented in this encounter Plan of Treatment Upcoming Encounters Date Type Department Care Team (Late st Contact Info) Description 07/19/2025 11:00 AM EST Office Visit Adult Medicine [address] [phone] Juan Acosta MD [address] [place] [address] 08/02/2025 9:10 AM EST Office Visit [facility] [address] [facility] [address] [place] [phone] Katiana Keen NP [address] [place] [address] [place] [address] 12/06/2025 11:00 AM EDT Office Visit [address] [phone] Juan Acosta MD [address] [place] [address] documented as of this encounter Visit Diagnoses Not on filedocumented in this encounter Additional Health Concerns Infection Onset Date Last Indicated Resolved Time Respiratory Rule-Out 11/30/2024 11/30/2024 025 12:42 PM EDT COVID-19 Rule-Out 11/30/2024 11/30/2024 11/30/2024 12:42 PM EDT COVID-19 11/30/2024 11/30/2024 12/30/2024 7:06 PM EDT Respiratory Rule-Out Comment:cancelled 12/10/2024 12/10/2024 12/10/2024 3:42 PM E DT Assessment Noted Time PHQ-9 Depression Total Score: 6 07/13/20 24 4:59 PM EST A fall risk assessment has been complete d for the patient 07/12/2024 10:54 AM EST documented as of this encounter Care Teams Primary Care Sales Representative Relationship Specialty Start Date End Date Juan Acosta MD [address] [place] [address] PCP - General Internal Medicine 03/25/20 documented as of this encounter
--- OUTSIDE RECORDS SUMMARY | 2025-07-05 06:50 | XMS_ITS | Encounter Summary ---
Author Organization [facility] Address [address] [place] [address] Care Team Providers Care Roof Plumber Name Role Phone Juan Acosta MD Primary Care Provider [phone] Encounter Details Date Type Department Care Team (Late st Contact Info) Description 12/23/2024 Lab Requisition [facility] - Main Lab [address] [place] [phone] Jamel Ulloa MD [address] [place] [id number] Encounter for other general examination Social History [...] care for your loved ones. For example, children's literature professor or elderly care for an older adult? [...] Description 07/19/2025 11:00 AM EST Office Visit [address] [phone] Juan Acosta MD [address] [place] [address] 08/02/2025 9:10 AM EST Office Visit [facility] [address] [facility] [address] [place] [phone] Katiana Keen NP [address] [place] [address] [place] [address] 12/06/2025 11:00 AM EDT Office Visit [address] [phone] Juan Acosta MD [address] [place] [address] documented as of this encounter Procedures Procedure Name Priority Date/Time Associated Diagnosis Comments COMPLETE BLOOD COUNT Routine 12/23/2024 6:22 AM EDT Encounter for other general examination COMPREHENSIVE METABOLIC PANEL Routine 12/23/2024 6:22 AM EDT Encounter for other general examination documented in this encounter Results * (ABNORMAL) Comprehensive metabolic panel (12/23/2024 6:22 AM EDT) Sodium 128(L) 133 - 145 mmol/L LAB CHEMISTRY METHOD 12/23/2024 9:27 AM EDT [facility] Potassium 5.3 3.5 - 5.5 mmol/L LAB CHEMISTRY METHOD 12/23/2024 9:27 AM EDT [facility] Chloride 91(L) 96 - 110 mmol/L LAB CHEMISTRY METHOD 12/23/2024 9:27 AM [facility] CO2 27 21 - 32 mmol/L LAB CHEMISTRY METHOD 12/23/2024 9:27 AM [facility] Anion Gap 10 3 - 11 LAB CHEMISTRY METHOD 12/23/2024 9:27 AM [facility] Glucose 73 70 - 100 mg/dL LAB CHEMISTRY METHOD 12/23/2024 9:27 AM [facility] BUN 48(H) 5 - 25 mg/dL LAB CHEMISTRY METHOD 12/23/2024 9:27 AM [facility] Creatinine 4.75(H) 0.70 - 1.30 mg/dL LAB CHEMISTRY METHOD 12/23/2024 9:27 AM [facility] eGFR 12(L) >=60 mL/min/1. 73m2 LAB CHEMISTRY METHOD 12/23/2024 9:27 AM [facility] Comment:Calculation based on the Chronic Kidney Disease Epidemiology Collaboration (CKD-EPI) equation refit without adjustment for race. BUN/Creatinine Ratio 10.1 LAB CHEMISTRY METHOD 12/23/2024 9:27 AM [facility] Calcium 8.7 8.5 - 10.5 mg/dL LAB CHEMISTRY METHOD 12/23/2024 9:27 AM [facility] AST (SGOT) 17 10 - 42 unit/L LAB CHEMISTRY METHOD 12/23/2024 9:27 AM [facility] ALT (SGPT) <6(L) 10 - 60 unit/L LAB CHEMISTRY METHOD 12/23/2024 9:27 AM [facility] Alkaline Phosphatase 127(H) 42 - 121 unit/L LAB CHEMISTRY METHOD 12/23/2024 9:27 AM [facility] Total Protein 6.2 6.0 - 8.0 g/dL LAB CHEMISTRY METHOD 12/23/2024 9:27 AM [facility] Albumin 2.9(L) 3.2 - 5.0 g/dL LAB CHEMISTRY METHOD 12/23/2024 9:27 AM EDT [facility] Total Bilirubin 0.6 0.0 - 1.4 mg/dL LAB CHEMISTRY METHOD 12/23/2024 9:27 AM EDT [facility] Blood Venous blood specimen / Unknown Venipuncture / Unknown 12/23/2024 6:22 AM EDT 12/23/2024 8:03 AM EDT us Jamel Ulloa MD LAB BLOOD ORDERABLES Final Resu lt [facility] [address] [place] [address], [place] [phone] * (ABNORMAL) Complete blood count (12/23/2024 6:22 AM EDT) WBC 5.4 4.8 - 10.8 K/mcL LAB HEMETOLOGY METHOD 12/23/2024 8:50 AM EDT [facility] RBC 2.60(L) 4.50 - 5.50 M/mcL LAB HEMETOLOGY METHOD 12/23/2024 8:50 AM EDT [facility] Hemoglobin 7.8(L) 13.5 - 17.5 g/dL LAB HEMETOLOGY METHOD 12/23/2024 8:50 AM EDT [facility] Hematocrit 26.0(L) 42.0 - 54.0 % LAB HEMETOLOGY METHOD 12/23/2024 8:50 AM EDT [facility] MCV 101.6(H) 79.0 - 98.0 FL LAB HEMETOLOGY METHOD 12/23/2024 8:50 AM EDT [facility] MCH 30.5 27.0 - 32.0 pcg LAB HEMETOLOGY METHOD 12/23/2024 8:50 AM EDT [facility] MCHC 30.0(L) 32.0 - 37.0 g/dL LAB HEMETOLOGY METHOD 12/23/2024 8:50 AM EDT [facility] RDW 14.4 11.0 - 15.0 % LAB HEMETOLOGY METHOD 12/23/2024 8:50 AM EDT [facility] Platelets 228 130 - 400 K/mcL LAB HEMETOLOGY METHOD 12/23/2024 8:50 AM EDT [facility] MPV 10.7 7.0 - 11.0 FL LAB HEMETOLOGY METHOD 12/23/2024 8:50 AM EDT [facility] NRBC 0.0 <1.0 % [facility] 12/23/2024 8:50 AM EDT [facility] NRBC Absolute 0.00 <0.10 K/mcL LAB HEMETOLOGY METHOD 12/23/2024 8:50 AM EDT [facility] Blood Venous blood specimen / Unknown Venipuncture / Unknown 12/23/2024 6:22 AM EDT 12/23/2024 8:03 AM EDT us Jamel Ulloa MD LAB BLOOD ORDERABLES Final Resu lt [facility] [address] [place] [address], documented in this encounter Visit Diagnoses Diagnosis [...] documented as of this encounter Care Teams Roof Plumber Relationship Specialty Start Date End Date Juan Acosta MD [address] [place] [address] PCP - General Internal Medicine 03/25/20 documented as of this encounter
--- OUTSIDE RECORDS SUMMARY | 2025-07-05 06:50 | XMS_ITS ---
Author Name [facility] Organization Unknown History of Medication Use Medication Directions Dispensed Refills Start Date End Date Stat ceFAZolin 2 g in dextrose 5 % 100 mL IVPB Infuse 2 g into a venous catheter 2 (two) times a week. 12/21/2024 active B complex-vitamin C-folic acid (NEPHRO-JENNIFER) 0.8 mg tablet Take 1 tablet by mouth 1 (one) time each day. 12/18/2024 active ceFAZolin 3 g in dextrose 5 % 100 mL IVPB Infuse 3 g into a venous catheter 1 (one) time per week. Give Cefazolin 3g once weekly on Saturday during HD. 12/18/2024 active FLUoxetine (PROzac) 20 mg capsule Take 1 capsule (20 mg total) by mouth 1 (one) time each day. 12/18/2024 active pantoprazole (PROTONIX) 40 mg EC tablet Take 1 tablet (40 mg total) by mouth 1 (one) time each day before breakfast. Do not crush, chew, or split. 12/18/2024 active albuterol 2.5 mg /3 mL (0.083 %) nebulizer solution Take 3 mL (2.5 mg total) by nebulization every 4 (four) hours if needed for wheezing. 12/17/2024 active apixaban (ELIQUIS) 5 mg tablet Take 1 tablet (5 mg total) by mouth 2 (two) times a day. 12/17/2024 active melatonin 3 mg tablet Take 1 tablet (3 mg total) by mouth at bedtime as needed (Sleep). 12/17/2024 active metoprolol tartrate (LOPRESSOR) 25 mg tablet Take 0.5 tablets (12.5 mg total) by mouth every 8 (eight) hours. 12/17/2024 active midodrine (PROAMATINE) 5 mg tablet Take 1 tablet (5 mg total) by mouth 3 (three) times a day before meals. 12/17/2024 active allopurinoL (ZYLOPRIM) 100 mg tablet TAKE 1 TABLET BY MOUTH EVERY DAY 11/10/2024 active atorvastatin (LIPITOR) 20 mg tablet TAKE 1 TABLET BY MOUTH EVERY DAY 07/20/2024 active ferrous sulfate 325 mg (65 mg elemental iron) tablet Take 1 tablet (325 mg total) by mouth 1 (one) time each day. 01/29/2024 active cetirizine (ZyrTEC) 10 mg tablet Take 10 mg by mouth daily. 01/07/2014 active calcium carbonate (CALCIUM 500 ORAL) daily active docusate sodium (COLACE) 100 mg capsule Take 100 mg by mouth 2 times daily. active Allergies Allergen Reaction Severity Comment Documented Date Source Statu s EGG YOLK NAUSEA AND VOMITING 10/26/2014 [facility] active Problems Problem Status Onset Date Problem Type Date of Resoluti on Source Malnutrition compromising bodily function ([facility] V24) active 2024-05-12 ProblemAct [facility] Gout active 2007-11-03 ProblemAct [facility] Primary central sleep apnea active 2016-09-14 ProblemAct [facility] Degenerative arthritis of lumbar spine active 2010-02-16 ProblemAct [facility] NS (nuclear sclerosis) active 2011-02-02 ProblemAct [facility] PVD (peripheral vascular disease) ([facility] V24) active 2011-12-25 ProblemAct [facility] Iliac artery aneurysm, right ([facility] V24) active 2020-07-19 ProblemAct [facility] Obstructive sleep apnea active 2006-05-14 ProblemAct [facility] Pneumonia active 2024-12-10 ProblemAct [facility] Hiccups active 2024-12-10 ProblemAct [facility] Ascending aorta dilatation ([facility] V24) active 2021-05-31 ProblemAct [facility] CHF (congestive heart failure) ([facility] V24, [facility] V28) active 2005-09-25 ProblemAct [facility] Acute hypoxemic respiratory failure ([facility] V24, [facility] V28) active 2024-11-30 ProblemAct [facility] Known medical problems active 2024-05-12 ProblemAct [facility] Hyperlipidemia active 2005-08-31 ProblemAct [facility]_ [facility] Radiculitis, lumbosacral active 2010-02-16 ProblemAct [facility] Type 2 diabetes mellitus ([facility] V24, [facility] V28) active 2014 ProblemAct [facility] Diverticulitis of colon active 2005-09-25 ProblemAct [facility] Type 2 diabetes mellitus, controlled, with renal complications ([facility] V24, [facility] V28) active 2024-05-12 ProblemAct [facility] DM (diabetes mellitus) with peripheral vascular complication ([facility] V24, [facility] V28) active 2011-12-25 ProblemAct [facility] MSSA bacteremia active 2024-12-[address] [facility] Hyperkalemia active 2024-11-30 ProblemAct [facility] Chronic diastolic congestive heart failure ([facility] V24, [facility] V28) active 2021-11-15 ProblemAct [facility] Atrial fibrillation ([facility] V24, [facility] V28) active 2005-09-25 ProblemAct [facility] Cervical myelopathy ([facility] V24, [facility] V28) active 2024-02-26 ProblemAct [facility] CKD (chronic kidney disease) stage 4, GFR 15-29 ml/min ([facility] V24, [facility] V28) active 2011-03-16 ProblemAct [facility] Spinal stenosis, lumbar region, without neurogenic claudication active 2010-04-03 ProblemAct [facility]T HS[facility] Acute kidney injury superimposed on CKD ([facility] V24) active 2024-12-10 ProblemAct [facility] Volume overload active 2024-12-[address] [facility] Abdominal aortic aneurysm (AAA) without rupture ([facility] V24) active 2020-07-19 ProblemAct [facility] Microalbuminuria active 2008-12-24 ProblemAct C T_THSFRAN S/P colostomy ([facility] V24, [facility] V28) active 2011-12-25 ProblemAct [facility] Obesity (BMI 30.0-34.9) active 2014-07-27 ProblemAct [facility] Low back pain active 2010-02-16 ProblemAct [facility]_T HS[facility]AN Type 2 diabetes mellitus with cataract ([facility] V24, [facility] V28) active 2024-05-12 ProblemAct [facility] Essential hypertension, benign active 2005-08-31 ProblemAct [facility] Malnutrition of moderate degree ([facility] V24) active 2024-12-13 ProblemAct [facility] R[facility] Immunizations Vaccine Date Source Lot Number Status Influenza trivalent, 0.5mL ( Fluzone High-dose) 65yo and older 05/28/2022 [facility] [id number] comple doug Moderna (age 6mo & older) Bi valent, COVID-19, 0.5 mL or 0.25 mL dosage 05/28/2022 [facility] [id number] completed Multifonds SARS-CoV-2 COVID-19, mRNA, LNP-S, preservative free 07/12/2021 [facility] completed Influenza trivalent, 0.5mL ( Fluzone High-dose) 65yo and older 06/22/2021 CT_VarshaFRDETSINY [id number] comple doug Pfizer SARS-CoV-2 COVID-19, mRNA, LNP-S, preservative free 11/29/2020 [facility] completed Pfizer SARS-CoV-2 COVID-19, mRNA, LNP-S, preservative free 11/08/2020 [facility] [id number] completed Influenza trivalent, 0.5mL ( Fluzone High-dose) 65yo and older 05/20/2020 CT_SFRAN [id number] comple doug Influenza trivalent, 0.5mL ( Fluzone High-dose) 65yo and older 07/01/2019 CT_SFRDESTINY [id number] comple doug Influenza, Unspecified 07/01/2019 [facility] co mpleted Influenza Quadravalent, MDCK , 0.5ml, preservative free (Flucelvax) 6mo and older 06/19/2018 CT_VarshaFRDESTINY [id number] completed Influenza Quadravalent, MDCK , 0.5ml, with preservative (Flucelvax) 6mo and older 06/06/2017 [facility] [id number] completed Pneumococcal conjugate 13 va lent (Prevnar 13, PCV13) 2mo and older 06/06/2017 [facility] [id number] complet ed Tdap Tetanus diptheria acell ular pertussis (Boostrix; Adacel) 7yo and older 01/31/2017 [facility] [id number] completed Influenza trivalent, with pr eservative (Fluzone; Afluria) 6mo and older 04/27/2016 [facility] [id number] completed Influenza trivalent, with pr eservative (Fluzone; Afluria) 6mo and older 06/03/2015 [facility] [id number] completed Pneumococcal polysaccharide 23 valent (Pneumovax 23) 2yo and older 09/09/2014 [facility] [id number] com pleted Influenza trivalent, with pr eservative (Fluzone; Afluria) 6mo and older 05/27/2014 [facility] [id number] completed Influenza trivalent, with pr eservative (Fluzone; Afluria) 6mo and older 05/05/2013 [facility] [id number] completed Influenza trivalent, with pr eservative (Fluzone; Afluria) 6mo and older 05/02/2012 [facility] [id number] completed Zoster Live 02/29/2012 [facility] [id number] completed Influenza trivalent, with pr eservative (Fluzone; Afluria) 6mo and older 05/12/2011 [facility] completed Influenza trivalent, with pr eservative (Fluzone; Afluria) 6mo and older 05/26/2010 [facility] [id number] completed H1N1 Inj Preservative Free 09/05/2009 [facility] [id number] completed Influenza trivalent, with pr eservative (Fluzone; Afluria) 6mo and older 09/05/2009 [facility] [id number] completed Influenza trivalent, with pr eservative (Fluzone; Afluria) 6mo and older 05/11/2008 [facility] [id number] completed Td Tetanus diptheria (Tdvax) 7yo and older 04/09/2007 CT_T HSFRAN TD-180 completed Pneumococcal polysaccharide 23 valent (Pneumovax 23) 2yo and older 04/02/2007 [facility]_THSFRAN [id number] com pleted Care Team Organization Name Specialty Phone Email Start Date End Da te [facility] ACO 03/31/2025 [facility] Wendy Macias Primary Care 10/17/2022 4 [facility] JOANN CONTRERAS Primary Care 06/19/2022 4
--- OUTSIDE RECORDS SUMMARY | 2025-07-05 06:50 | XMS_ITS | Encounter Summary ---
Author Organization [facility] Address [address] [place] [address] Care Team Providers Care Content Engineer Name Role Phone Juan Acosta MD Primary Care Provider [phone] Encounter Details Date Type Department Care Team (Late st Contact Info) Description 12/19/2024 Lab Requisition [facility] - Main Lab [address] [place] [phone] Jamel Ulloa MD [address] [place] [address] Encounter for other general examination Social History [...] your loved ones. For example, child care counselor or elderly care for an older adult? [...] Description 07/19/2025 11:00 AM EST Office Visit [address] [phone] Juan Acosta MD [address] [place] [address] 08/02/2025 9:10 AM EST Office Visit [facility] - [facility] [address] [facility] [address] [place] [phone] Katiana Keen NP [address] [place] [address] [place] [address] 12/06/2025 11:00 AM EDT Office Visit [address] [phone] Juan Acosta MD [address] [place] [address] documented as of this encounter Procedures Procedure Name Priority Date/Time Associated Diagnosis Comments CBC WITH AUTO DIFFERENTIAL Routine 12/19/2024 7:11 AM EDT Encounter for other general examination CBC AND DIFFERENTIAL Routine 12/19/2024 7:11 AM EDT Encounter for other general examination MAGNESIUM Routine 12/19/2024 7:11 AM EDT Encounter for other general examination COMPREHENSIVE METABOLIC PANEL Routine 12/19/2024 7:11 AM EDT Encounter for other general examination documented in this encounter Results * (ABNORMAL) CBC auto differential (12/19/2024 7:11 AM EDT) WBC 4.2(L) 4.8 - 10.8 K/mcL LAB HEMETOLOGY METHOD 12/19/2024 9:02 AM [facility] RBC 2.40(L) 4.50 - 5.50 M/mcL LAB HEMETOLOGY METHOD 12/19/2024 9:02 AM [facility] Hemoglobin 7.5(L) 13.5 - 17.5 g/dL LAB HEMETOLOGY METHOD 12/19/2024 9:02 AM [facility] Hematocrit 24.2(L) 42.0 - 54.0 % LAB HEMETOLOGY METHOD 12/19/2024 9:02 AM [facility] MCV 101.3(H) 79.0 - 98.0 FL LAB HEMETOLOGY METHOD 12/19/2024 9:02 AM [facility] MCH 31.4 27.0 - 32.0 pcg LAB HEMETOLOGY METHOD 12/19/2024 9:02 AM [facility] MCHC 31.0(L) 32.0 - 37.0 g/dL LAB HEMETOLOGY METHOD 12/19/2024 9:02 AM [facility] RDW 14.3 11.0 - 15.0 % LAB HEMETOLOGY METHOD 12/19/2024 9:02 AM [facility] Platelets 234 130 - 400 K/mcL LAB HEMETOLOGY METHOD 12/19/2024 9:02 AM [facility] MPV 10.7 7.0 - 11.0 FL LAB HEMETOLOGY METHOD 12/19/2024 9:02 AM [facility] NRBC 0.0 <1.0 % LAB HEMETOLOGY METHOD 12/19/2024 9:02 AM [facility] NRBC Absolute 0.00 <0.10 K/mcL LAB HEMETOLOGY METHOD 12/19/2024 9:02 AM [facility] Neutrophils Relative 51.4 % LAB HEMETOLOGY METHOD 12/19/2024 9:02 AM [facility] Lymphocytes Relative 25.0 % LAB HEMETOLOGY METHOD 12/19/2024 9:02 AM [facility] Monocytes Relative 18.5 % LAB HEMETOLOGY METHOD 12/19/2024 9:02 AM [facility] Eosinophils Relative 3.4 % LAB HEMETOLOGY METHOD 12/19/2024 9:02 AM [facility] Basophils Relative 1.2 % LAB HEMETOLOGY METHOD 12/19/2024 9:02 AM [facility] Immature Granulocytes Relative 0.5 % LAB HEMETOLOGY METHOD 12/19/2024 9:02 AM [facility] Neutrophils Absolute 2.14 1.50 - 7.00 K/mcL LAB HEMETOLOGY METHOD 12/19/2024 9:02 AM [facility] Lymphocytes Absolute 1.04 1.00 - 5.00 K/mcL LAB HEMETOLOGY METHOD 12/19/2024 9:02 AM [facility] Monocytes Absolute 0.77 0.20 - 1.00 K/mcL LAB HEMETOLOGY METHOD 12/19/2024 9:02 AM [facility] Eosinophils Absolute 0.14 0.00 - 0.50 K/mcL LAB HEMETOLOGY METHOD 12/19/2024 9:02 AM [facility] Basophils Absolute 0.05 0.00 - 0.20 K/mcL LAB HEMETOLOGY METHOD 12/19/2024 9:02 AM [facility] Immature Granulocytes Absolute 0.02 0.00 - 0.03 K/mcL LAB HEMETOLOGY METHOD 12/19/2024 9:02 AM [facility] Blood Venous blood specimen / Unknown Venipuncture / Unknown 12/19/2024 7:11 AM EDT 12/19/2024 8:00 AM EDT us Jamel Ulloa MD LAB BLOOD ORDERABLES Final Resu lt [facility] [address] [place] [address], [place] [phone] * Magnesium (12/19/2024 7:11 AM EDT) [facility] Magnesium 1.9 1.9 - 2.6 mg/dL LAB CHEMISTRY METHOD 12/19/2024 9:33 AM EDT [facility] Blood Venous blood specimen / Unknown Venipuncture / Unknown 12/19/2024 7:11 AM EDT 12/19/2024 8:00 AM EDT us Jamel Ulloa MD LAB BLOOD ORDERABLES Final Resu lt Performing Organization Address City/[facility]/ZIP Co de Phone Number [facility] [address] [place] [address], [place] [phone] * (ABNORMAL) Comprehensive metabolic panel (12/19/2024 7:11 AM EDT) [facility] Sodium 134 133 - 145 mmol/L LAB CHEMISTRY METHOD 12/19/2024 9:52 AM EDT [facility] Potassium 4.2 3.5 - 5.5 mmol/L LAB CHEMISTRY METHOD 12/19/2024 9:52 AM EDT [facility] Chloride 97 96 - 110 mmol/L LAB CHEMISTRY METHOD 12/19/2024 9:52 AM EDT [facility] CO2 30 21 - 32 mmol/L LAB CHEMISTRY METHOD 12/19/2024 9:52 AM T [facility] Anion Gap 7 3 - 11 LAB CHEMISTRY METHOD 12/19/2024 9:52 AM EDT [facility] Glucose 80 70 - 100 mg/dL LAB CHEMISTRY METHOD 12/19/2024 9:52 AM [facility] BUN 26(H) 5 - 25 mg/dL LAB CHEMISTRY METHOD 12/19/2024 9:52 AM [facility] Creatinine 3.45(H) 0.70 - 1.30 mg/dL LAB CHEMISTRY METHOD 12/19/2024 9:52 AM [facility] eGFR 18(L) >=60 mL/min/1. 73m2 LAB CHEMISTRY METHOD 12/19/2024 9:52 AM [facility] Comment:Calculation based on the Chronic Kidney Disease Epidemiology Collaboration (CKD-EPI) equation refit without adjustment for race. BUN/Creatinine Ratio 7.5 LAB CHEMISTRY METHOD 12/19/2024 9:52 AM [facility] Calcium 8.7 8.5 - 10.5 mg/dL LAB CHEMISTRY METHOD 12/19/2024 9:52 AM [facility] AST (SGOT) 20 10 - 42 unit/L LAB CHEMISTRY METHOD 12/19/2024 9:52 AM [facility] ALT (SGPT) <6(L) 10 - 60 unit/L LAB CHEMISTRY METHOD 12/19/2024 9:52 AM [facility] Comment:Results verified by repeat testing Alkaline Phosphatase 98 42 - 121 unit/L LAB CHEMISTRY METHOD 12/19/2024 9:52 AM [facility] Total Protein 5.8(L) 6.0 - 8.0 g/dL LAB CHEMISTRY METHOD 12/19/2024 9:52 AM [facility] Albumin 2.8(L) 3.2 - 5.0 g/dL LAB CHEMISTRY METHOD 12/19/2024 9:52 AM [facility] Total Bilirubin 0.5 0.0 - 1.4 mg/dL LAB CHEMISTRY METHOD 12/19/2024 9:52 AM [facility] Blood Venous blood specimen / Unknown Venipuncture / Unknown 12/19/2024 7:11 AM EDT 12/19/2024 8:00 AM EDT us Jamel Ulloa MD LAB BLOOD ORDERABLES Final Resu lt [facility] [address] [place] [address], documented in this encounter Visit Diagnoses Diagnosis [...] documented as of this encounter Care Teams Content Engineer Relationship Specialty Start Date End Date Juan Acosta MD [address] [place] [phone] PCP - General Internal Medicine 03/25/20 documented as of this encounter
--- OUTSIDE RECORDS SUMMARY | 2025-07-05 06:50 | XMS_ITS | Encounter Summary ---
Author Organization [facility] Address [address] [place] [address] Care Team Providers Care Cargoman Name Role Phone Juan Acosta MD Primary Care Provider [phone] Encounter Details Date Type Department Care Team (Late st Contact Info) Description 01/01/2025 Lab Requisition [facility] - Main Lab [address] [facility] [place] [phone] Jamel Ulloa MD [address] [place] [address] Encounter for other general examination Social History [...] for your loved ones. For example, children's book author or elderly care for an older adult? [...] 07/19/2025 11:00 AM EST Office Visit Adult [address] [phone] Juan Acosta MD [address] [place] [address] 08/02/2025 9:10 AM EST Office Visit [facility] Associates - [facility] [address] [facility] [address] [place] [phone] Katiana Keen NP [address] [place] [address] [place] [address] 12/06/2025 11:00 AM EDT Office Visit [address] [phone] Juan Acosta MD [address] [place] [address] documented as of this encounter Procedures Procedure Name Priority Date/Time Associated Diagnosis Comments COMPLETE BLOOD COUNT Routine 01/01/2025 5:23 AM EDT Encounter for other general examination PHOSPHORUS Routine 01/01/2025 5:23 AM EDT Encounter for other general examination MAGNESIUM Routine 01/01/2025 5:23 AM EDT Encounter for other general examination COMPREHENSIVE METABOLIC PANEL Routine 01/01/2025 5:23 AM EDT Encounter for other general examination documented in this encounter Results * Phosphorus (01/01/2025 5:23 AM EDT) [facility] Phosphorus 2.9 2.5 - 4.5 mg/dL LAB CHEMISTRY METHOD 01/01/2025 11:12 AM EDT [facility] Blood Venous blood specimen / Unknown Venipuncture / Unknown 01/01/2025 5:23 AM EDT 01/01/2025 9:31 AM EDT us Jamel Ulloa MD LAB BLOOD ORDERABLES Final Resu lt Performing Organization Address City/[facility]/ZIP Co de Phone Number [facility] [address] [place] [address], [place] [phone] * (ABNORMAL) Magnesium (01/01/2025 5:23 AM EDT) Magnesium 1.8(L) 1.9 - 2.6 mg/dL LAB CHEMISTRY METHOD 01/01/2025 11:12 AM EDT [facility] Blood Venous blood specimen / Unknown Venipuncture / Unknown 01/01/2025 5:23 AM EDT 01/01/2025 9:31 AM EDT us Jamel Ulloa MD LAB BLOOD ORDERABLES Final Resu lt Performing Organization Address City/[facility]/ZIP Co de Phone Number [facility] [address] [place] [address], [place] [phone] * (ABNORMAL) Complete blood count (01/01/2025 5:23 AM EDT) WBC 6.5 4.8 - 10.8 K/[facility] LAB HEMETOLOGY METHOD 01/01/2025 10:12 AM EDT [facility] RBC 2.60(L) 4.50 - 5.50 M/[facility] LAB HEMETOLOGY METHOD 01/01/2025 10:12 AM EDT [facility] Hemoglobin 8.2(L) 13.5 - 17.5 g/dL LAB HEMETOLOGY METHOD 01/01/2025 10:12 AM EDT [facility] Hematocrit 27.1(L) 42.0 - 54.0 % LAB HEMETOLOGY METHOD 01/01/2025 10:12 AM EDT [facility] MCV 103.8(H) 79.0 - 98.0 FL LAB HEMETOLOGY METHOD 01/01/2025 10:12 AM EDT [facility] MCH 31.4 27.0 - 32.0 pcg LAB HEMETOLOGY METHOD 01/01/2025 10:12 AM EDT [facility] MCHC 30.3(L) 32.0 - 37.0 g/dL LAB HEMETOLOGY METHOD 01/01/2025 10:12 AM EDT [facility] RDW 15.9(H) 11.0 - 15.0 % LAB HEMETOLOGY METHOD 01/01/2025 10:12 AM [facility] Platelets 217 130 - 400 K/mcL LAB HEMETOLOGY METHOD 01/01/2025 10:12 AM EDT [facility] MPV 10.3 7.0 - 11.0 FL LAB HEMETOLOGY METHOD 01/01/2025 10:12 AM EDT [facility] NRBC 0.0 <1.0 % LAB HEMETOLOGY METHOD 01/01[facility]2025 [facility] NRBC Absolute 0.00 <0.10 K/mcL LAB HEMETOLOGY METHOD 01/01/2025 10:12 AM T [facility] Blood Venous blood specimen / Unknown Venipuncture / Unknown 01/01/2025 5:23 AM EDT 01/01/2025 9:31 AM EDT us Jamel Ulloa MD LAB BLOOD ORDERABLES Final Resu lt [facility] [address] [place] [address], * (ABNORMAL) Comprehensive metabolic panel (01/01/2025 5:23 AM EDT) [facility] Sodium 130(L) 133 - 145 mmol/L LAB CHEMISTRY METHOD 01/01/2025 11:19 AM [facility] Potassium 3.7 3.5 - 5.5 mmol/L LAB CHEMISTRY METHOD 01/01/2025 11:19 AM [facility] Chloride 95(L) 96 - 110 mmol/L LAB CHEMISTRY METHOD 01/01/2025 11:19 AM [facility] CO2 26 21 - 32 mmol/L LAB CHEMISTRY METHOD 01/01/2025 11:19 AM [facility] Anion Gap 9 3 - 11 LAB CHEMISTRY METHOD 01/01/2025 11:19 AM [facility] Glucose 69(L) 70 - 100 mg/dL LAB CHEMISTRY METHOD 01/01/2025 11:19 AM [facility] BUN 41(H) 5 - 25 mg/dL LAB CHEMISTRY METHOD 01/01/2025 11:19 AM [facility] Creatinine 4.71(H) 0.70 - 1.30 mg/dL LAB CHEMISTRY METHOD 01/01/2025 11:19 AM [facility] eGFR 12(L) >=60 mL/min/1. 73m2 LAB CHEMISTRY METHOD 01/01/2025 11:19 AM [facility] Comment:Calculation based on the Chronic Kidney Disease Epidemiology Collaboration (CKD-EPI) equation refit without adjustment for race. BUN/Creatinine Ratio 8.7 LAB CHEMISTRY METHOD 01/01/2025 11:19 AM [facility] Calcium 9.1 8.5 - 10.5 mg/dL LAB CHEMISTRY METHOD 01/01/2025 11:19 AM [facility] AST (SGOT) 12 10 - 42 unit/L LAB CHEMISTRY METHOD 01/01/2025 11:19 AM [facility] ALT (SGPT) <6(L) 10 - 60 unit/L LAB CHEMISTRY METHOD 01/01/2025 11:19 AM EDT [facility] Alkaline Phosphatase 131(H) 42 - 121 unit/L LAB CHEMISTRY METHOD 01/01/2025 11:19 AM T [facility] Total Protein 6.7 6.0 - 8.0 g/dL LAB CHEMISTRY METHOD 01/01/2025 11:19 AM T [facility] Albumin 3.1(L) 3.2 - 5.0 g/dL LAB CHEMISTRY METHOD 01/01/2025 11:19 AM T [facility] Total Bilirubin 0.6 0.0 - 1.4 mg/dL LAB CHEMISTRY METHOD 01/01/2025 11:19 AM [facility] Blood Venous blood specimen / Unknown Venipuncture / Unknown 01/01/2025 5:23 AM EDT 01/01/2025 9:31 AM EDT us Jamel Ulloa MD LAB BLOOD ORDERABLES Final Resu lt [facility] [address] [place] [address], documented in this encounter Visit Diagnoses Diagnosis Encounter for other general examination documented in this encounter Additional Health Concerns Assessment Noted Time PHQ-9 Depression Total Score: 6 07/13/20 24 4:59 PM EST A fall risk assessment has been complete d for the patient 07/12/2024 10:54 AM EST documented as of this encounter Care Teams Cargoman Relationship Specialty Start Date End Date Juan Acosta MD [address] [place] [phone] PCP - General Internal Medicine 03/25/20 documented as of this encounter
--- OUTSIDE RECORDS SUMMARY | 2025-07-05 06:50 | XMS_ITS ---
Author Organization [facility] Address [address] [place] [address] Care Team Providers Care Dental Director Name Role Phone Juan Acosta MD Primary Care Provider [phone] Post Acute Care Coordination Status:Ongoing (Active) Start date:06/21/2025 Enrollment date:06/21/2025 Enrollment reason:Post acute care coordination Case Team Name Relationship Phone Ila Lovett RN(Responsible Staff) Post Acute Chief Of Surgery Continued Care and Services Coordination
--- OUTSIDE RECORDS SUMMARY | 2025-07-05 06:50 | XMS_ITS | Encounter Summary ---
Author Organization [facility] Address [address] [place] [address] Care Team Providers Care Community Health Agent Name Role Phone Juan Acosta MD Primary Care Provider [phone] Encounter Details Date Type Department Care Team (Late st Contact Info) Description 01/02/2025 Lab Requisition [facility] - Main Lab [address] [facility] [place] [phone] Jamel Ulloa MD [address] [place] [address] Encounter for other general examination Social History [...] the emergency department for your medical care? 1 01/06/2025 Health Literacy Answer Date Recorded How often [...] medical appointments or from getting medications? No 01/06/2025 Social Isolation Answer Date Recorded How often [...] care for your loved ones. For example, exceptional children teacher assistant or elderly care for an older adult? Yes 07/30/2024 Education Answer Date Recorded Do you think completing more education or training, like finishing a GED, going to college, or learning a trade, would be helpful for you? N/A 01/06/2025 Employment and Income Answer Date Recor ded During the last four weeks, have you been actively looking for work? No 01/06/2025 Living Situation Answer Date Recorded What is [...] 07/19/2025 11:00 AM EST Office Visit Adult [address] [phone] Juan Acosta MD [address] [place] [address] 08/02/2025 9:10 AM EST Office Visit [facility] - [facility] [address] [facility] [address] [place] [phone] Katiana Keen NP [address] [place] [address] [place] [address] 12/06/2025 11:00 AM EDT Office Visit [address] [phone] Juan Acosta MD [address] [place] [address] documented as of this encounter Procedures Procedure Name Priority Date/Time Associated Diagnosis Comments HEPATITIS B SURFACE ANTIGEN WITH CONFIRMATION Routine 01/02/2025 6:28 AM EDT Encounter for other general examination documented in this encounter Results * Hepatitis B surface antigen with reflex to confirmation (01/02/2025 6:28 AM EDT) Hepatitis B Surface Ag Negative Negative LAB CHEMISTRY METHOD 01/02/2025 12:01 PM EDT [facility] Blood Venous blood specimen / Unknown Venipuncture / Unknown 01/02/2025 6:28 AM EDT 01/02/2025 10:03 AM EDT Narrative [facility] - 01/02/2025 12:01 PM EDT Over the counter supplements containing high doses of biotin may interfere with this assay. If interference is suspected, patients shoud be retested after refraining from biotin supplements for 72 hours. us Jamel Ulloa MD LAB BLOOD ORDERABLES Final Resu lt [facility] ([facility]) [facility] [address] [place] [address], documented in this encounter Visit Diagnoses Diagnosis Encounter for other general examination documented in this encounter Additional Health Concerns Assessment Noted Time PHQ-9 Depression Total Score: 6 07/13/20 24 4:59 PM EST A fall risk assessment has been complete d for the patient 07/12/2024 10:54 AM EST documented as of this encounter Care Teams Community Health Agent Relationship Specialty Start Date End Date Juan Acosta MD [address] [place] [address] PCP - General Internal Medicine 03/25/20 documented as of this encounter
--- OUTSIDE RECORDS SUMMARY | 2025-07-05 06:50 | XMS_ITS | Encounter Summary ---
Author Organization [facility] Address [address] [place] [address] Care Team Providers Care Tmd Teacher Name Role Phone Juan Acosta MD Primary Care Provider [phone] Encounter Details Date Type Department Care Team (Late st Contact Info) Description 12/26/2024 Lab Requisition [facility] - Main Lab [address] [facility] [place] [phone] Jamel Ulloa MD [address] [place] [address] Encounter for other general examination Social History [...] your loved ones. For example, child care supervisor or elderly care for an older adult? [...] 07/19/2025 11:00 AM EST Office Visit Adult [address] [phone] Juan Acosta MD [address] [place] [address] 08/02/2025 9:10 AM EST Office Visit [facility] - [facility] [address] [facility] [address] [place] [phone] Katiana Keen NP [address] [place] [address] [place] [address] 12/06/2025 11:00 AM EDT Office Visit [address] [phone] Juan Acosta MD [address] [place] [address] documented as of this encounter Procedures Procedure Name Priority Date/Time Associated Diagnosis Comments COMPLETE BLOOD COUNT Routine 12/26/2024 7:48 AM EDT Encounter for other general examination COMPREHENSIVE METABOLIC PANEL Routine 12/26/2024 7:48 AM EDT Encounter for other general examination documented in this encounter Results * (ABNORMAL) Complete blood count (12/26/2024 7:48 AM EDT) WBC 4.5(L) 4.8 - 10.8 K/[facility] LAB HEMETOLOGY METHOD 12/26/2024 11:32 AM EDT [facility] RBC 2.70(L) 4.50 - 5.50 M/[facility] LAB HEMETOLOGY METHOD 12/26/2024 11:32 AM EDT [facility] Hemoglobin 8.2(L) 13.5 - 17.5 g/dL LAB HEMETOLOGY METHOD 12/26/2024 11:32 AM T [facility] Hematocrit 27.3(L) 42.0 - 54.0 % LAB HEMETOLOGY METHOD 12/26/2024 11:32 AM [facility] MCV 103.0(H) 79.0 - 98.0 FL LAB HEMETOLOGY METHOD 12/26/2024 11:32 AM EDT [facility] MCH 30.9 27.0 - 32.0 pcg LAB HEMETOLOGY METHOD 12/26/2024 11:32 AM [facility] MCHC 30.0(L) 32.0 - 37.0 g/dL LAB HEMETOLOGY METHOD 12/26/2024 11:32 AM [facility] RDW 14.6 11.0 - 15.0 % LAB HEMETOLOGY METHOD 12/26/2024 11:32 AM [facility] Platelets 211 130 - 400 K/mcL LAB HEMETOLOGY METHOD 12/26/2024 11:32 AM [facility] MPV 10.9 7.0 - 11.0 FL LAB HEMETOLOGY METHOD 12/26/2024 11:32 AM [facility] NRBC 0.0 <1.0 % LAB HEMETOLOGY METHOD 12/26/2024 11:32 AM [facility] NRBC Absolute 0.00 <0.10 K/mcL LAB HEMETOLOGY METHOD 12/26/2024 11:32 AM [facility] Blood Venous blood specimen / Unknown Venipuncture / Unknown 12/26/2024 7:48 AM EDT 12/26/2024 10:43 AM EDT us Jamel Ulloa MD LAB BLOOD ORDERABLES Final Resu lt [facility] [address] [place] [address], * (ABNORMAL) Comprehensive metabolic panel (12/26/2024 7:48 AM EDT) Sodium 133 133 - 145 mmol/L LAB CHEMISTRY METHOD 12/26/2024 12:13 PM [facility] Potassium 3.9 3.5 - 5.5 mmol/L LAB CHEMISTRY METHOD 12/26/2024 12:13 PM [facility] Chloride 94(L) 96 - 110 mmol/L LAB CHEMISTRY METHOD 12/26/2024 12:13 PM [facility] CO2 28 21 - 32 mmol/L LAB CHEMISTRY METHOD 12/26/2024 12:13 PM [facility] Anion Gap 11 3 - 11 LAB CHEMISTRY METHOD 12/26/2024 12:13 PM [facility] Glucose 104(H) 70 - 100 mg/dL LAB CHEMISTRY METHOD 12/26/2024 12:13 PM [facility] BUN 30(H) 5 - 25 mg/dL LAB CHEMISTRY METHOD 12/26/2024 12:13 PM [facility] Creatinine 3.84(H) 0.70 - 1.30 mg/dL LAB CHEMISTRY METHOD 12/26/2024 12:13 PM [facility] eGFR 16(L) >=60 mL/min/1. 73m2 LAB CHEMISTRY METHOD 12/26/2024 12:13 PM [facility] Comment:Calculation based on the Chronic Kidney Disease Epidemiology Collaboration (CKD-EPI) equation refit without adjustment for race. BUN/Creatinine Ratio 7.8 LAB CHEMISTRY METHOD 12/26/2024 12:13 PM [facility] Calcium 8.8 8.5 - 10.5 mg/dL LAB CHEMISTRY METHOD 12/26/2024 12:13 PM EDT [facility] AST (SGOT) 13 10 - 42 unit/L LAB CHEMISTRY METHOD 12/26/2024 12:13 PM EDT [facility] ALT (SGPT) <6(L) 10 - 60 unit/L LAB CHEMISTRY METHOD 12/26/2024 12:13 PM EDT [facility] Alkaline Phosphatase 127(H) 42 - 121 unit/L LAB CHEMISTRY METHOD 12/26/2024 12:13 PM EDT [facility] Total Protein 6.9 6.0 - 8.0 g/dL LAB CHEMISTRY METHOD 12/26/2024 12:13 PM EDT [facility] Albumin 3.1(L) 3.2 - 5.0 g/dL LAB CHEMISTRY METHOD 12/26/2024 12:13 PM EDT [facility] Total Bilirubin 0.5 0.0 - 1.4 mg/dL LAB CHEMISTRY METHOD 12/26/2024 12:13 PM EDT [facility] Blood Venous blood specimen / Unknown Venipuncture / Unknown 12/26/2024 7:48 AM EDT 12/26/2024 10:43 AM EDT us Jamel Ulloa MD LAB BLOOD ORDERABLES Final Resu lt [facility] [address] [place] [address], documented in this encounter Visit Diagnoses Diagnosis [...] documented as of this encounter Care Teams Tmd Teacher Relationship Specialty Start Date End Date Juan Acosta MD [address] [place] [phone] PCP - General Internal Medicine 03/25/20 documented as of this encounter
--- OUTSIDE RECORDS SUMMARY | 2025-07-05 06:50 | XMS_ITS | Clinical Summary ---
Author Organization [facility] Address [address] [place] [id number] Phone Care Team Providers Care Manager Ccu Name Role Phone Juan Acosta MD Primary Care Provider [phone] Allergies Active Allergy Reactions Criticality Noted Date Comments Egg Yolk Nausea And Vomiting 10/26/2014 Other 04/05/2025 Seasonal sneezing Medications allopurinol (ZYLOPRIM) 300 MG tablet Take 1 tablet by mouth 1 (one) time each day 7 Active amLODIPine (NORVASC) 10 MG tablet Take 1 tablet by mouth 1 (one) time each day 7 Active atenolol (TENORMIN) 50 MG tablet Take 3 tablets by mouth 1 (one) time each day 7 Active atorvastatin (LIPITOR) 20 MG tablet Take 1 tablet by mouth 1 (one) time each day 7 Active carvedilol (COREG) 12.5 MG tablet Take 1 tablet by mouth 2 (two) times a day with meals 9 Active cetirizine (ZyrTEC ALLERGY) 10 MG tablet Take 2 tablets by mouth 1 (one) time each day 4 Active colchicine 0.6 MG tablet Take 1 tablet by mouth 2 (two) times a day 7 Active digoxin (LANOXIN) 125 MCG tablet Take 1 tablet by mouth 1 (one) time each day 7 Active furosemide (LASIX) 40 MG tablet Comments: Patient Notes: Take ONE tablet every morning and a HALF a tablet every afternoon 9 Active insulin glargine (LANTUS SOLOSTAR) 100 UNIT/ML injection Inject 48 Units under the skin 1 (one) time each day 9 Active lisinopril (PRINIVIL,ZESTR IL) 40 MG tablet Take 1 tablet by mouth 2 (two) times a day 7 Active Melatonin 5 MG tablet Take 1 tablet by mouth at bed time Active Omeprazole ([employer] OMEPRAZOLE) 20 MG tablet delayed-release Take 20 mg by mouth 1 (one) time each day Active spironolactone (ALDACTONE) 25 MG tablet Take 1 tablet by mouth daily 9 Active warfarin (COUMADIN) 5 MG tablet Comments: Filled Date: May 09 2017 12:00AM Patient Notes: As directed Duration: 90 7 Active Multiple Vitamins-Minera ls (MULTIVITAMIN ADULT PO) Take 1 capsule by mouth 1 (one) time each day Active docusate sodium (COLACE) 100 MG tablet Take 1 capsule by mouth 2 (two) times a day Active calcium carbonate-vitam in D (CALCIUM 500 + D) 500-125 MG-UNIT per tablet Take 1 tablet by mouth 1 (one) time each day Active digoxin (LANOXIN) 125 MCG tablet Take 1 tablet by mouth 1 (one) time each day 7 Active Alcohol Swabs (ALCOHOL WIPES) 70 % pads Apply 1 each topically 0 Active Insulin Pen Needle 31G X 8 MM misc Use one needle as directed daily to inject insulin 0 Active magnesium oxide 400 (240 Mg) MG tablet Take 1 tablet by mouth 1 (one) time each day 3 Active NIFEdipine CC (ADALAT CC) 60 MG 24 hr tablet Take 60 mg by mouth 1 (one) time each day 2 Active apixaban (Eliquis) 2.5 MG tablet Take 2.5 mg by mouth in the morning and 2.5 mg in the evening. Active ammonium lactate (AMLACTIN) 12 % cream apply to affected area twice a day 5 Active B Zxhxdtv-P-Fvaqf Acid (Dalia-Rush) tablet Take 1 tablet by mouth 1 (one) time each day Active midodrine (PROAMATINE) 2.5 MG tablet Take 2.5 mg by mouth in the morning and 2.5 mg in the evening and 2.5 mg before bedtime. Active metoprolol tartrate 25 MG tablet Take 25 mg by mouth in the morning and 25 mg in the evening. 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 Stage 3b chronic kidney disease 03/16/2011 Overview (08/15/2020): Update for Diagnosis Load Proteinuria 12/24/2008 Gout 11/03/2007 Obstructive sleep apnea 05/14/2006 Overview (07/29/2019): [facility] [place] [facility] [place] Polysomnogram treatment study. Date 11/03/2017. SE 51 % SM 60 %; spent 0 % of the study in REM. At the optimal pressure of 18 CPAP; RDI 2.1 (AHI 0), Central apneas 0; Obstructive apneas 0; Mixed apneas 0; hypopneas 0; RERAs 2; and, average oxygen saturation was 97%. For the entire study, PLMs ~1. Other and unspecified hyperlipidemia 08/31/2005 Benign essential hypertension 08/31/2005 Encounters Date Type Department Care Team Description 06/29/2025 Treatment [facility], [address] [place] [address] Francisco Prieto MD End stage renal disease; Dependence on renal dialysis; Type 2 diabetes mellitus with diabetic nephropathy 06/24/2025 Treatment [facility], [address] [place] [address] Francisco Prieto MD End stage renal disease; Dependence on renal dialysis; Type 2 diabetes mellitus with diabetic nephropathy 06/11/2025 Orders Only [facility] [address] [place] [address] Daisy Kaba Chronic kidney disease, Stage V (HCC) 06/09/2025 9:30 AM EDT Office Visit [facility] [address] [place] [address] Javan Ramirez MD End stage renal disease (HCC) (Primary Dx) 05/28/2025 8:45 AM EDT Office Visit [facility] [address] [place] [address] Arcenio Witt MD End stage renal disease (HCC) (Primary Dx) 05/28/2025 Telephone [facility] [address] [place] [address] Daisy Kaba 05/18/2025 Treatment [facility], [address] [place] [address] Francisco Prieto MD End stage renal disease; Dependence on renal dialysis; Type 2 diabetes mellitus with diabetic nephropathy 05/17/2025 11:30 AM EDT Office Visit [facility] [address] [place] [address] Arcenio Witt MD End stage renal disease (HCC) (Primary Dx) 05/08/2025 Treatment [facility], [address] [place] [address] Francisco Prieto MD End stage renal disease; Dependence on renal dialysis; Type 2 diabetes mellitus with diabetic nephropathy 04/20/2025 Treatment [facility], [address] [place] [address] Francisco Prieto MD End stage renal disease; Dependence on renal dialysis; Type 2 diabetes mellitus with diabetic nephropathy 04/05/2025 Documentation Only [facility] [address] [place] [address] [place] [phone] Jamia Clemente from Last 3 Months Immunizations Immunization Administration Dates Next Due H1N1 Inj Preservative Free 09/05/2009 Influenza (IM) Preservative Free 07/01/2019 Influenza TIV (IM) 04/27/2016, 5,05/27/2014,05/05,05/02/2012,05/12/2011,05/26/2010 ,09/05/2009,05/11/2008 Influenza, MDCK, PF, Quadrivalent 06/19/2018 Influenza, MDCK, Quadrivalen t, with preservative 06/06/2017 Pneumococcal Conjugate 13-Valent 06/06/2017 Pneumococcal Polysaccharide 09/09/2014, 7 Td 04/09/2007 Tdap 01/31/2017 Zoster 02/29/2012 Family History Medical History Relation Comments Cancer Mother breast Relation Status Comments Father Unknown Mother Unknown Social History Tobacco Use Types Packs/Day Years Used Date Smoking Tobacco: Former Cigarettes 0 Q uit: 08/11/1999 Smokeless Tobacco: Never Tobacco Cessation:Counseling Given: Not Answered Alcohol Use Standard Drinks/Week Comments Yes 0 (1 standard drink = 0.6 oz pure alcohol) Alcoholic Drinks/day: Occasional social drink Sex and Gender Information Value Date Recorded Sex Assigned at Not on file Legal Sex Male 4:37 PM EST Gender Identity Not on file Sexual Orientation Not on file Last Filed Vital Signs Vital Sign Reading Time Taken Comments Blood Pressure 122/76 01/23/2023 9:32 AM EDT Pulse - - Temperature - - Respiratory Rate - - Oxygen Saturation - - Inhaled Oxygen Concentration - - Weight 103 kg (228 lb) 07/29/2019 10:42 AM EST Height 177.8 cm (5' 10 ) 03/20/2019 12:00 PM EDT Body Mass Index 32.71 03/20/2019 12:00 PM EDT Plan of Treatment Upcoming Encounters Date Type Department Care Team (Late st Contact Info) Description 08/25/2025 1:30 PM EST Office Visit [facility] [address] [place] [address] [place] [address] Health Maintenance Due Date Last Done Comments Hepatitis B Vaccine (1 of 5 - Risk Dialysis 4-dose series) 1970 03/20/2025, 02/13/2025, 01/16/2025 Diabetes: Ophthalmology Exam 07/29/2019, 04/30/2016, 10/26/2014, Additional history exists Diabetes: Pedal Pulse Checked 07/29/2019 Diabetes: Sensory Foot Exam 07/29/2019 Diabetes: Visual Foot Exam 07/29/2019 Influenza Vaccine (#1) 2025 2, 06/22/2021, 05/20/2020, Additional history exists Diabetes: Hemoglobin A1C 09/14/2025 025, 06/14/2025, 12/21/2024, Additional history exists Pneumococcal Vaccine: 50+ Years Completed 06/06/2017, 09/09/2014, 04/02/2007 Pneumococcal Vaccine: Peds ( 0 to 5 Years) and At-Risk Patients (6 to 49 Years) Discontinued 06/06/2017, 09/09/2014, 04/02/2007 Insurance [facility] Medicare Medicaid [place] Medicare [facility] Medicaid [place] Care Teams Manager Ccu Relationship Specialty Start Date End Date Juan Acosta MD [address] [place] [id number] PCP - General Internal Medicine 05/19/20
[2025-07-05 06:56] LABS: Anion Gap 16 (12-20); Blood Urea Nitrogen 44 mg/dL (9-16); Calcium 8.8 mg/dL (8.4-10.2); Carbon Dioxide 31 mmol/L (22-29); Chloride 95 mmol/L (96-108); Potassium 3.2 mmol/L (3.3-5.1); Sodium 139 mmol/L (135-145)
[2025-07-05 07:00] LABS: Hematocrit 27.4 % (42.0-52.0); Hemoglobin 8.4 g/dl (14.0-18.0); Imm Gran Abs Auto 0.02 X10*3/uL (0.00-0.03); Imm Gran Pct Auto 0.3 % (0.0-0.4); Lymphocytes Absolute Auto 1.8 X10*3/uL (1.2-4.9); Mean Corpuscular HGB Conc 30.7 g/dl (31.0-36.0); Mean Corpuscular Hemoglobin 33.9 pg (27.0-33.0); NRBC Abs Auto 0.000 X10*3/uL (0.0-0.012); NRBC Pct Auto 0.0 /100WBC (0.0-0.2); Platelet Count 200 X10*3/uL (160-400); Red Blood Count 2.48 X10*6/uL (4.60-5.80); White Blood Count 7.0 X10*3/uL (4.8-10.8)
[2025-07-05 07:23] LABS: Mean Corpuscular Volume 110.5 fL (80.0-98.0)
[2025-07-05 07:39] LABS: Estimated Glomerular Filt Rate 10
== END 2025-07-05 06:35 | disposition home or self-care (01) ==
LOC: HO.MMNH1L 06:34
PROVIDERS: Visit Provider Physician Assistant Medical
DX: I48.0 Paroxysmal atrial fibrillation (principal)
CPT/HCPCS: 36415; 80048; 85025